=== PATIENT | female | born 1950 | race Caucasian/White ===

== ENCOUNTER → 2016-07-01 | Outpatient (CLI) | payer MEDICARE, BC ==
--- NOTE | 2016-07-01 10:17 | US ---
EXAMINATION TYPE: US abdomen complete DATE OF EXAM: 07/01/2016 9:59 AM COMPARISON: NONE CLINICAL History: epigastric pain. large body habitus overlying bowel gas EXAM MEASUREMENTS: Liver Length: 18.5 cm Gallbladder Wall: 0.2 cm CBD: 0.1 cm Spleen: 13.2 cm Right Kidney: 10.2 x 4.1 x 3.9 cm Left Kidney: 9.6 x 4.2 x 3.7 cm ANATOMY: TECHNOLOGIST IMPRESSION: large body habitus overlying bowel gas Pancreas: large body habitus overlying bowel gas Liver: upper limits of normal Gallbladder: wnl Evidence for sonographic Garzon's sign: no CBD: wnl Spleen: wnl Right Kidney: wnl Left Kidney: small cortical cyst 0.5 x 0.5 x 0.9 cm Upper IVC: portions seen wnl Abd Aorta: large body habitus overlying bowel gas portions seen wnl The liver is homogenous. The intrahepatic portion of the IVC and proximal abdominal aorta are within normal limits. There is no evidence of cholelithiasis. Common bile duct is unremarkable. The visu alized portions of the pancreas are homogenous. The spleen is unremarkable. Kidneys are symmetric a nd free of hydronephrosis. No renal lesions are seen. IMPRESSION: Limited study. Small left renal cortical cyst. Normal Values: Liver Length: < 16cm wnl, 17-18cm upper limits, >18cm enlarged Spleen Length = < 13cm Renal Length = 9 - 12cm GB Wall: < 0.3cm CBD: < 0.6cm or < 1.0cm post cholecystectomy
== END | disposition home or self-care (01) ==
LOC: RADUSWWP 09:29
PROVIDERS: ATTEND Internal Medicine Gastroenterology
DX: N28.1 Cyst of kidney, acquired (principal); R10.13 Epigastric pain
CPT/HCPCS: 76700

== ENCOUNTER 2016-07-09 07:05 | Day surgery (SDC) | payer MEDICARE, BC ==
[2016-07-07 12:42] VITALS: BMI 36.6
[~2016-07-09 07:05] MED LIST: LACTATED RINGERS 1,000 ML IV SCH
[2016-07-09 07:27] VITALS: TEMP 97.1
[2016-07-09 07:31] LABS: Glucose,Whole Blood 140 mg/dL (75-99)
[2016-07-09] MEDS ORDERED: LIDOCAINE 1% INJ 10MG/ML (20 ML MDV) ONE (07:38)
[2016-07-09] MEDS ORDERED: PROPOFOL 10 MG/ML 20 ML VIAL IV ONE (07:38)
--- NOTE | 2016-07-09 08:16 | P.PCN ---
Date of Procedure: 07/09/16 Procedure(s) Performed: Brief history: Patient is a pleasant 66-year-old white female, scheduled for an elective upper endoscopy as well as colonoscopy as a part of evaluation of abdominal pain, epigastric pain and chronic diarrhea for the last several months duration. Lately her symptoms have been progressively getting worse. She is hence scheduled for an upper endoscopy as well as colonoscopy to evaluate further. Procedure performed: Esophagogastroduodenoscopy with biopsy Colonoscopy with biopsy Preoperative diagnosis: Abdominal pain, chronic diarrhea Anesthesia: MAC Procedure: After informed consent was obtained from the patient was brought into the endoscopy unit and IV conscious sedation was administered by anesthesia under continuous monitoring. Initially upper endoscopy was done. The Olympus GF 160 video endoscope was inserted inserted into the mouth and esophagus intubated without any difficulty and was gradually advanced into the stomach and duodenum and carefully examined. The bulb and second part of the duodenum appeared normal. Biopsies were done from this area to rule out celiac disease. The scope was then withdrawn into the stomach adequately insufflated with air and upon careful examination the antrum had mild gastritis and biopsies were done from this area. The body, cardia and fundus appeared normal. The scope was then withdrawn into the esophagus. The GE junction was located at 40 cm to the incisors. It appeared regular with no erythema erosions or ulcerations. Rest of the esophagus appeared normal. Patient tolerated the procedure well. At this time the patient continued to remain sedation. Initial digital rectal examination was normal. Olympus CF 160 video colonoscope was then inserted into the rectum and gradually advanced to the cecum without any difficulty. Careful examination was performed as the scope was gradually being withdrawn. The prep was excellent. The cecum, ascending colon appeared normal. In the hepatic flexure there was a 5 mm polyp that was removed by biopsy. Rest of the , transverse colon, descending colon, sigmoid colon and rectum appeared normal. random biopsies were done from ascending and descending colon to rule out microscopic/collagenous colitis. Retroflexion was performed in the rectum and no lesions were noted. Patient tolerated the procedure well. Impression: 1. Upper endoscopy revealed mild antral gastritis but no evidence of esophagitis or peptic ulcer disease. 2. Colonoscopy revealed 5 mm hepatic flexure polyp that was removed by biopsy, rest of the colon appeared normal. Recommendations: Findings of this examination were discussed with the patient as well as well as her family. She was advised to follow with the biopsy results. If the biopsy shows a tubular adenoma she can have a repeat colonoscopy in 5 years. She'll be seen in office in 2 weeks.
[2016-07-09 08:18] VITALS: PULSE 75; RESP 18
[2016-07-09 08:29] VITALS: BP 135/76
== END 2016-07-09 09:18 | disposition home or self-care (01) ==
LOC: ORWHC2ENDO 07:05
PROVIDERS: ATTEND Internal Medicine Gastroenterology
DX: K29.50 Unspecified chronic gastritis without bleeding (principal); D12.3 Benign neoplasm of transverse colon; K21.9 Gastro-esophageal reflux disease without esophagitis; F32.9 Major depressive disorder, single episode, unspecified; Z79.899 Other long term (current) drug therapy; Z88.0 Allergy status to penicillin; Z88.5 Allergy status to narcotic agent; Z91.09 Other allergy status, other than to drugs and biological substances
CPT/HCPCS: 88305; 88342; 45380; 43239; J2001; J2704; 99153

== ENCOUNTER → 2018-11-10 | Outpatient (CLI) | payer MEDICARE, BC ==
--- NOTE | 2018-11-10 13:22 | US ---
EXAMINATION TYPE: US duplex aorta DATE OF EXAM: 11/10/2018 COMPARISON: Ultrasound abdomen 07/01/2016 CLINICAL HISTORY: Z82.49 Family history of ischemic heart disease an. Family hx of AAA- Mother. HTN controlled with meds. Previous smoker. EXAM MEASUREMENTS: Abdominal Aorta: Proximal: 1.7 x 2.3 cm Mid: 1.3 x 1.4 cm Distal: 1.3 x 1.4 cm Bifurcation: Right- 1.2 x 0.7 cm Left- 1.1 x 0.7 cm Grayscale, color Doppler imaging performed IMPRESSION: No evident abdominal aortic aneurysm.
== END | disposition home or self-care (01) ==
LOC: RADUSWWP 09:51
PROVIDERS: ATTEND Family Medicine
DX: Z13.6 Encounter for screening for cardiovascular disorders (principal); Z82.49 Family history of ischemic heart disease and other diseases of the circulatory system
CPT/HCPCS: 93979

== ENCOUNTER → 2019-01-03 | Outpatient (CLI) | payer MEDICARE, BC ==
--- NOTE | 2019-01-03 13:39 | XR ---
EXAMINATION TYPE: XR elbow complete bilateral DATE OF EXAM: 01/03/2019 COMPARISON: NONE HISTORY: Pain FINDINGS: Three views of the elbow demonstrate no pathologic joint effusion. The osseous structures are intact . There is no acute fracture or dislocation. Spurring along the lateral epicondyles noted. No patho logic joint effusion. IMPRESSION: 1. No acute fracture or dislocation. If symptoms persist follow-up study in 7 to 10 days could be ob tained. 2. Small spur extending off the lateral epicondyle. If symptoms persist correlate with MRI.
--- NOTE | 2019-01-03 13:40 | XR ---
EXAMINATION TYPE: XR cervical spine comp DATE OF EXAM: 01/03/2019 COMPARISON: NONE HISTORY: Pain TECHNIQUE: Four views are submitted. FINDINGS: The odontoid is intact. There are no compression deformities. The prevertebral soft tissue structur es are within normal limits. There is multilevel severe degenerative disc disease with posterior spo ndylosis and anterior hypertrophic spurring. Multilevel facet arthropathy. Calcifications in the soft tissue the neck likely related to carotid artery atherosclerotic changes. Suspect multilevel bilater al foraminal encroachment. IMPRESSION: 1. Severe multilevel degenerative disc disease with facet arthropathy. Posterior spondylosis and mult ilevel foraminal encroachment suspected..
== END | disposition home or self-care (01) ==
LOC: RADXRMAIN 12:48
PROVIDERS: ATTEND Family Medicine
DX: M50.10 Cervical disc disorder with radiculopathy, unspecified cervical region (principal); M46.92 Unspecified inflammatory spondylopathy, cervical region; M77.12 Lateral epicondylitis, left elbow; M77.11 Lateral epicondylitis, right elbow
CPT/HCPCS: 72050

== ENCOUNTER → 2019-04-11 | Outpatient (CLI) | payer MEDICARE, BC ==
--- NOTE | 2019-04-11 16:38 | BD ---
EXAMINATION TYPE: Axial Bone Density DATE OF EXAM: 04/11/2019 COMPARISON: NONE CLINICAL HISTORY: Height: 5 FT 4 IN Weight: 199 FRAX RISK QUESTIONS: History of Fracture in Adulthood: YES Secondary Osteoporosis: 5. Chronic liver disease: FATTY Rheumatoid Arthritis: YES RISK FACTORS HISTORY OF: Active: NO Postmenopausal woman: AGE 48 Poor Health: FAIR MEDICATIONS: Thyroid Medications: YES Which medication: SYNTHROID How Long: SEVERAL MONTHS Additional Medications: SYNTHROID, METFORMIN, MANY CREAMS FOR PSORIASIS, BLOOD PRESSURE MEDS, CHOLEST SHEFALI MEDS, PRILOSEC, LOPRESSOR, LEXAPRO, ELAVIL, Additional History: EXAM MEASUREMENTS: Bone mineral densitometry was performed using the [employer] System. Bone mineral density as measured about the Lumbar spine is: ----- L1-L4(G/cm2): 1.090 T Score Values are as follows: ----- L2: -1.4 ----- L3: -0.6 ----- L4: 0.3 ----- L1-L4: -0.8 BASELINE Bone mineral density about the R hip (g/cm2): 0.982 Bone mineral density about the L hip (g/cm2): 1.007 T Score values are as follows: -----R Neck: -0.4 -----L Neck: -0.2 -----R Total: 0.2 -----L Total: 1.0 BASELINE IMPRESSION: Normal (Values between +1 and -1 indicate normal bone mass). Consider repeating this study in 5 year s or sooner if there is some new clinical indication. NOTE: T-SCORE=SD OF THE YOUNG ADULT MEAN.
--- NOTE | 2019-04-13 10:55 | MM ---
Reason for exam: screening (asymptomatic). Last mammogram was performed 3 years and 3 months ago. History: Patient is postmenopausal and is nulliparous. Took hormonal contraceptives for 5 years. Took estrogen for 6 months. Physical Findings: A clinical breast exam by your physician is recommended on an annual basis and results should be correlated with mammographic findings. MG 3D Screening Mammo W/Cad Bilateral CC and MLO view(s) were taken. XCCL view(s) were taken of the left breast. Prior study comparison: January 07, 2016, bilateral MG screening mammo w CAD. September 22, 2012, mammogram, performed at [facility]. No significant changes when compared with prior studies. ASSESSMENT: Benign, BI-RAD 2 RECOMMENDATION: Routine screening mammogram of both breasts in 1 year.
== END | disposition home or self-care (01) ==
LOC: RADMAMWWP 13:20
PROVIDERS: ATTEND Family Medicine
DX: Z12.31 Encounter for screening mammogram for malignant neoplasm of breast (principal); M89.9 Disorder of bone, unspecified
CPT/HCPCS: 77063; 77067; 77080

== ENCOUNTER → 2020-04-18 | Outpatient (CLI) | payer MEDICARE, BC ==
--- NOTE | 2020-04-18 15:41 | CT ---
EXAMINATION TYPE: CT chest w con DATE OF EXAM: 04/18/2020 COMPARISON: HISTORY: Cough, difficulty breathing CT DLP: 454.0 mGycm Automated exposure control for dose reduction was used. CONTRAST: CT scan of the chest is performed with IV Contrast, patient injected with 80 mL of Isovue 300. FINDINGS: There are coronary artery calcifications present. LUNGS: The lungs are grossly clear, there is no concerning parenchymal mass or nodule identified. T here is no pleural effusion or pneumothorax seen. The tracheobronchial tree is patent. MEDIASTINUM: There are no greater than 1 cm hilar or mediastinal lymph nodes. Prominent epicardial f at pads. Probable scarring present in the right middle lobe No pericardial effusion is seen. AORTA: Atheromatous changes are present within the aorta. OTHER: No additional significant abnormality is seen. IMPRESSION: Coronary artery disease. No abnormality evident to account for patient's symptoms.
== END | disposition home or self-care (01) ==
LOC: RADCTMAIN 12:44
PROVIDERS: ATTEND Family Medicine
DX: R05 Cough (principal); R06.00 Dyspnea, unspecified
CPT/HCPCS: 82565; 84520; 71260; 36415; Q9967

== ENCOUNTER → 2020-05-19 | Day surgery (SDC) | payer MEDICARE, BC ==
[2020-05-14 16:03] VITALS: BMI 33.4
[~2020-05-19] MED LIST changes: +ACETAMINOPHEN TAB 325 MG TAB ONE; +ALPRAZolam 0.25 MG TAB PO PRN; +ALPRAZolam 0.5 MG TAB PO PRN; +AMITRIPTYLINE HCL 50 MG TAB PO SCH; +ASPIRIN 325 MG TAB PO STA; +ASPIRIN 81 MG ONE; +ASPIRIN 81 MG PO SCH; +ATORVASTATIN 80 MG TAB PO STA; +HEPARIN SODIUM 1,000 UN/ML (10ML VL) ONE; +IOPAMIDOL-370 125ML BTL INJ ONE; +ISOSORBIDE MONONITRATE ER 30 MG TAB.ER.24H PO SCH; -LACTATED RINGERS 1,000 ML IV SCH; +LEVOTHYROXINE 75 MCG TAB PO SCH; +LIDOCAINE 1% INJ 10MG/ML (20 ML MDV) ONE; +LIDOCAINE 1% INJ 10MG/ML (20 ML MDV) SQ ONE; +METOPROLOL TARTRATE 50 MG TAB PO SCH; +MIDAZOLAM 2 MG/2 ML VIAL IV ONE; +MULTIVITAMINS, THERA 1 EACH TAB PO SCH; +NITROGLYCERIN 1000MCG/10ML SYRINGE INTRACORON ONE; +NITROGLYCERIN SL TABS 0.4 MG TAB SUBLINGUAL PRN; +PANTOPRAZOLE 40 MG TABLET PO SCH; +RX INFO: IV CONTRAST WAS GIVEN 1 EACH MISC MISCELLANE PRN; +SODIUM CHLORIDE 0.9% 1,000 ML IV ONE; +SODIUM CHLORIDE 0.9% 1,000 ML IV SCH; +SODIUM CHLORIDE 0.9% 1,000 ML in EMPTY BAG 1 BAG IV ONE; +VERAPAMIL 2.5 MG/ML 2 ML AMP ONE; +VERAPAMIL SYRINGE (5 MG/10 ML) INTRAARTER ONE; +fentaNYL (PF) 50 MCG/ML 2 ML AMP IV ONE; +fentaNYL (PF) 50 MCG/ML 2 ML AMP ONE
[2020-05-19 10:20] LABS: Glucose,Whole Blood 153 mg/dL (75-99)
[2020-05-19 10:21] VITALS: RESP 16; TEMP 97.9
--- NOTE | 2020-05-19 13:10 | CC ---
CARDIAC CATHETERIZATION REPORT Mrs. Martell is a 69-year-old female with known history of hypertension, hyperlipidemia, diabetes mellitus, who has been complaining of progressive episode of chest discomfort at times with mental stress as well as dyspnea on exertion and she had a CAT scan that showed calcification for coronary arteries. In view of her presentation, her risk factors, recommendation made regarding cardiac catheterization. The procedures, risks, and complication were discussed with the patient who is in full understanding and agreement. PROCEDURE: Patient was brought to dental lab technician in a fasting semi-sedated state after receiving fentanyl and Benadryl and achieving moderate conscious sedated state using Xylocaine anesthesia and Seldinger technique, a 6-Singaporean sheath was introduced in the right radial artery. Selective right and left coronary angiography performed using 5-Singaporean 3.5 bend right and left Clarita catheter, multiple views of the coronary artery including hemiaxial views were obtained. The right Clarita catheter was used to cross the aortic valve and left ventricular end-diastolic pressure was calculated. Following that, a 6-Singaporean FR4 guiding catheter introduced into the system. After cannulating the ostium of the right coronary artery. A TabSquare Doppler flow wire was introduced and IFR was calculated. Following that, catheter and sheath were removed. Hemostasis was obtained with deployment of a TR band. There was no immediate complication. Patient is returned to her room in stable condition. Of note, the patient received 1000 units of intravenous heparin as well as intra-arterial verapamil. FINDINGS: FLUOROSCOPY: There was calcification involving the left main as well as the right artery next. LEFT MAIN: This is a short-size vessel, bifurcating into left circumflex, left main coronary artery has no evidence of high-grade stenosis. LEFT ANTERIOR DESCENDING ARTERY: This is a large-sized vessel reaching toward the apex with a wraparound apex segment, giving rise to 2 diagonal branches. Left anterior descending artery proximally has intimal disease of 20%-30%. distally prior to the apex there is an area of about 70%. The rest of the vessel has no high-grade stenosis. LEFT CIRCUMFLEX: This is a nondominant vessel giving rise to a large obtuse marginal branch. The left circumflex has mild intimal disease without any evidence of high- grade stenosis. RIGHT CORONARY ARTERY: This is a dominant vessel, large in caliber bifurcating distally into PDA and posterolateral segment branches. The right coronary artery in mid segment has an eccentric 50%-60% plaque. There is another plaque in the distal segment of 40%. The rest of the vessel has no high-grade stenosis. LEFT VENTRICULOGRAM: Left ventriculogram was not performed. HEMODYNAMICS: There was no gradient across the aortic valve. The left ventricular end- diastolic pressure was 12-14 mmHg. IFR: IFR was measured with the wire in the distal right coronary artery and was one and based on those findings, it was found that the lesion was non hemodynamically significant. RESULTS: 1. Borderline lesion in the mid right coronary artery. 2. Significant disease in the mid to distal right coronary artery and beyond that the size of the vessel is small. 3. Mild disease in the left circumflex. 4. Non hemodynamically significant lesion in the mid right coronary artery by IFR. RECOMMENDATION: In view of finding anatomy, I recommend continue medical therapy with aggressive coronary risk modifications being initiated. Those findings and recommendation were discussed with the patient and her family and they are in full understanding and agreement. Duration of the sedation is 20 minutes. MMODL / IJN: [id number] /
--- NOTE | 2020-05-19 13:15 | LTR ---
DATE OF SERVICE: 05/19/2020 RE: Jayshree Amina Dear Dr. Delgadillo; I had the pleasure to perform cardiac catheterization on Mrs. Martell at [facility] on May 19, 2020 and a full copy of the procedure note will be forwarded to you. In brief, she was found to have a borderline significant lesion in mid right coronary artery and underwent subsequent IFR measurement that showed that the lesion was not hemodynamically significant and based on those findings, I have recommended to continue medical therapy with aggressive risk modifications that have been initiated and depending on her progress, further recommendation will be made. Thank you again for allowing me to participate in this patient's personal care. Please feel free to call for any questions. Sincerely yours, MD SLAVA Ceja / JUAN JN: [id number] /
[2020-05-19 17:19] VITALS: BP 135/76; PULSE 76
== END ==
LOC: CATHCVL 09:34
PROVIDERS: ATTEND Internal Medicine Interventional Cardiology
DX: I25.110 Atherosclerotic heart disease of native coronary artery with unstable angina pectoris (principal); I10 Essential (primary) hypertension; E11.9 Type 2 diabetes mellitus without complications; E78.2 Mixed hyperlipidemia; E66.9 Obesity, unspecified; Z87.891 Personal history of nicotine dependence; Z79.890 Hormone replacement therapy; Z79.899 Other long term (current) drug therapy; Z79.84 Long term (current) use of oral hypoglycemic drugs; Z88.0 Allergy status to penicillin; Z88.2 Allergy status to sulfonamides; Z88.5 Allergy status to narcotic agent; Z90.49 Acquired absence of other specified parts of digestive tract; Z96.659 Presence of unspecified artificial knee joint; Z68.33 Body mass index [BMI] 33.0-33.9, adult
CPT/HCPCS: 93458; 85347; C1887; C1769; C1894; J2250; J2001; J3010; J1644; Q9967

== ENCOUNTER → 2021-03-04 | Outpatient (CLI) | payer MEDICARE, BC ==
--- NOTE | 2021-03-04 17:32 | CONS ---
CONSULTATION DATE OF SERVICE: 03/04/2021 This 70-year-old lady has been evaluated in [facility] for possible obstructive sleep apnea-hypopnea syndrome. HISTORY OF PRESENT ILLNESS/SLEEP-WAKE EVALUATION: Patient's usual sleep schedule is from 1 a.m. until 9 or 10 a.m. She does have problems with falling asleep, although no TV in bedroom. Usually she sleeps on the side position. According to her sister, she has very loud snoring and witnessed episodes of stopped breathing during sleep. The patient wakes up from sleep with choking, grinding teeth, dry mouth, panic attack, heartburn several times during the night, usually without nocturia. Recently the patient started to have significant movements during sleep and had episodes of falling out of bed. No history of jah-vw-[id number] movements, according to the patient. No history of hypnagogic hallucinations, sleep paralysis or cataplexy. She may take up to one nap, usually around 3 p.m. [place] Sleepiness Scale is increased to 10. PAST MEDICAL HISTORY: Positive for hypertension, hyperlipidemia, arthritis, COPD, acid reflux, diabetes mellitus, hypothyroidism. PAST SURGICAL HISTORY: Status post right knee replacement, appendectomy. MEDICATIONS: 1. Metformin 1000 mg twice a day. 2. Elavil 150 mg once a day. 3. Metoprolol 50 mg twice a day. 4. Prilosec 40 mg once a day. 5. Lexapro 10 mg once a day. 6. Fluticasone spray as needed. 7. Aspirin 81 mg once a day. 8. Vitamins. 9. Xanax 0.25 mg as needed. ALLERGIES: PENICILLIN and ERYTHROMYCIN, SEASONAL ALLERGIES , VICODIN. SOCIAL HISTORY: Positive for smoking for about 30 years up to 2 packs a day; quit in 2005. Alcohol consumption: None at the present time. FAMILY HISTORY: Positive for snoring, hypertension. REVIEW OF SYSTEMS: No fevers. No double vision. No recent chest pain. No shortness of breath. No abdominal pain. No bleeding episodes. No blood in the urine. No seizure episodes. Awakenings from sleep, loud snoring, sleepiness during the day. PHYSICAL EXAMINATION: GENERAL: Pleasant lady without distress. VITAL SIGNS: BP 143/73, HR 70, RR 15, height 5 feet 4-1/2 inches, weight 197 pounds. Body mass index 33.2, temperature 97.8, oxygen saturation at room air 98%. HEENT: PERRLA, EOMI, evaluation of oropharynx showed tongue protrudes midline. Low position of soft palate; Mallampati III. NECK: Supple, no JVD. Thyroid is not palpable. Neck measures 16 inches in circumference. LUNGS: Clear to percussion and to auscultation. Good air exchange. No wheezing or rhonchi. HEART: S1, S2 regular. No murmurs, gallops, or rubs. ABDOMEN: Soft and nontender. Bowel sounds are present. No organomegaly appreciated. EXTREMITIES: No clubbing or cyanosis. PRODUCT/DEVICE TECHNOLOGIST: Awake, alert, and oriented X3. Cranial nerves 2 to 7 intact. There is no fasciculation or atrophy. noted. No focal deficits observed. IMPRESSION: 1. Loud snoring, witnessed episodes of stopped breathing during sleep, low position of soft palate, wide neck at 16 inches in circumference, sleepiness. [place] Sleepiness Scale is 10. Obstructive sleep apnea-hypopnea syndrome. 2. Mild obesity; body mass index 33.2. 3. Movements during the sleep with a history of falling out of bed. 4. Hypertension. 5. Hyperlipidemia. 6. Arthritis. 7. Chronic obstructive pulmonary disease. 8. Acid reflux. 9. Diabetes mellitus. 10.Hypothyroidism. 11.Status post right knee replacement. 12.Status post appendectomy. PLAN: 1. Polysomnography for evaluation of patient's breathing during sleep. 2. CPAP/BiPAP titration if sleep study confirms obstructive sleep apnea-hypopnea syndrome. 3. Preferable position during sleep on the side. 4. No driving if patient feels any sleepiness. 5. I will see patient for follow up visit to explain results of testing and following plan. Thank you very much for referring this patient for consultation. Sincerely, Connor Moreno MD, PhD, FAASM Diplomat of [employer] Sleep Medicine Board of [place] [employer] [place] [facility] [place] MMODL / JUAN JN: [id number] /
== END ==
LOC: SLEEP 14:29
PROVIDERS: ATTEND Internal Medicine
DX: G47.33 Obstructive sleep apnea (adult) (pediatric) (principal); E66.9 Obesity, unspecified; E11.9 Type 2 diabetes mellitus without complications; E78.5 Hyperlipidemia, unspecified; I10 Essential (primary) hypertension; J44.9 Chronic obstructive pulmonary disease, unspecified; K21.9 Gastro-esophageal reflux disease without esophagitis; M19.90 Unspecified osteoarthritis, unspecified site; E03.9 Hypothyroidism, unspecified; Z68.33 Body mass index [BMI] 33.0-33.9, adult; Z79.84 Long term (current) use of oral hypoglycemic drugs; Z79.899 Other long term (current) drug therapy; Z96.651 Presence of right artificial knee joint; Z90.49 Acquired absence of other specified parts of digestive tract; Z88.0 Allergy status to penicillin; Z88.1 Allergy status to other antibiotic agents; Z88.5 Allergy status to narcotic agent; Z87.891 Personal history of nicotine dependence
CPT/HCPCS: 99211

== ENCOUNTER 2021-04-10 09:34 | Emergency (ER) | payer MEDICARE, BC ==
[2021-04-10 09:49] VITALS: BP 130/84; PULSE 91; RESP 18; TEMP 98.2
[2021-04-10] MEDS ORDERED: ACETAMINOPHEN TAB 500 MG TAB PO STA (10:14)
--- NOTE | 2021-04-10 10:33 | ED ---
Fall HPI - General Chief Complaint: Fall Stated Complaint: Fell on head and body Time Seen by Provider: 04/10/21 10:10 Source: patient, RN notes reviewed Mode of arrival: wheelchair Limitations: no limitations - History of Present Illness Initial Comments: Patient is a 70-year-old female presenting to the emergency Department with complaints of some left-sided back pain after she fell last night. Patient states she was walking back to her bed when she tripped and fell sideways onto her left side. Patient states she was able to get up and went back to bed. When she woke up this morning she had some soreness and swelling noted of her left back area. She called her doctor regarding this and he recommended coming in for evaluation. She denies any hematuria, she states she did hit her head on the ground but landed mostly on her body first. She is not on blood thinners. She did land on carpet. She did not lose consciousness, she denies having headache, no blurry vision, no dizziness. She denies any neck pain, no chest pain or shortness of breath. She denies any abdominal pain, no nausea or vomiting. She denies any pain in her extremities, no pelvic pain, no hip pain. Patient states her only complaint today is the left back pain. She denies any previous surgeries on her back. She has no further complaints at this time. - Related Data Home Medications Medication Instructions Recorded Confirmed Albuterol Inhaler (Mhu) [Ventolin 1 - 2 puff INHALATION Q6HR PRN 07/07/16 05/19/20 Hfa Inhaler (Mhu)] Cholecalciferol [Vitamin D3 (25 5,000 unit PO DAILY 07/07/16 05/19/20 Mcg = 1000 Iu)] Escitalopram [Lexapro] 10 mg PO QAM 07/07/16 05/19/20 Loperamide HCl [Imodium A-D] 2 mg PO DAILY PRN 07/07/16 05/19/20 Metoprolol Tartrate [Lopressor] 50 mg PO BID 07/07/16 05/19/20 Multivitamins, Thera [Multivitamin 1 tab PO DAILY 07/07/16 05/19/20 (formulary)] metFORMIN HCL [Glucophage] 1,000 mg PO BID 07/07/16 05/19/20 ALPRAZolam [Xanax] 0.25 mg PO DIRECTED PRN 05/14/20 05/19/20 Amitriptyline HCl 150 mg PO HS 05/14/20 05/19/20 Cetametha Liquid 1 applicate TOPICAL DIRECTED PRN 05/14/20 05/19/20 Clobetasol Gel 1 applicate TOPICAL DIRECTED PRN 05/14/20 05/19/20 Fluticasone Nasal [place] [Flonase 1 spray EA NOSTRIL DAILY 05/14/20 05/19/20 Nasal [place]] Hemiplex 1 tab PO DAILY 05/14/20 05/19/20 Isosorbide Mononitrate [Isosorbide 30 mg PO DAILY 05/14/20 05/19/20 Mononitrate ER] Levothyroxine Sodium [Synthroid] 75 mcg PO DAILY 05/14/20 05/19/20 Omeprazole [PriLOSEC] 40 mg PO HS 05/14/20 05/19/20 Previous Rx's Medication Instructions Recorded Aspirin 81 mg PO DAILY chew 05/19/20 Allergies Allergy/AdvReac Type Severity Reaction Status Date / Time erythromycin base Allergy Severe burning Verified 04/10/21 09:49 pain to esophagus/stomach Penicillins Allergy Diarrhea Verified 04/10/21 09:49 Sulfa (Sulfonamide Allergy Unknown Verified 04/10/21 09:49 Antibiotics) hydrocodone [From Vicodin] AdvReac Severe Vomiting Verified 04/10/21 09:49 Review of Systems ROS Statement: Those systems with pertinent positive or pertinent negative responses have been documented in the HPI. ROS Other: All systems not noted in ROS Statement are negative. Past Medical History Past Medical History: Chest Pain / Angina, COPD, Diabetes Mellitus, Fibromy algia, GERD/Reflux, Hypertension, Liver Disease, Osteoarthritis (OA), Rheumatoid Arthritis (RA), Skin Disorder, Thyroid Disorder Additional Past Medical History / Comment(s): migraines, SOB with chest pain, heart murmer, hx ulcer, hiatal hernia, diarrhea, IBS, fatty liver, hx gout, psoriasis, History of Any Multi-Drug Resistant Organisms: None Reported Past Surgical History: Appendectomy, Tonsillectomy Additional Past Surgical History / Comment(s): blocked tear duct left eye, dinh cataracts Past Anesthesia/Blood Transfusion Reactions: Motion Sickness Past Psychological History: No Psychological Hx Reported Smoking Status: Former smoker Past Alcohol Use History: None Reported Past Drug Use History: None Reported - Past Family History Mother Family Medical History: Cancer Additional Family Medical History / Comment(s): lung General Exam - General Exam Comments Initial Comments: GENERAL: Patient is well-developed and well-nourished. Patient is nontoxic and in no acute distress. HEAD: Atraumatic, normocephalic. No hematomas, no abrasions. EYES: Pupils equal round and reactive to light, extraocular movements intact, sclera anicteric, conjunctiva are normal. Eyelids were unremarkable. ENT: Moist mucous membranes. NECK: Normal range of motion, supple without lymphadenopathy or JVD. No midline tenderness. LUNGS: Unlabored respirations. Breath sounds clear to auscultation bilaterally and equal. No wheezes rales or rhonchi. HEART: Regular rate and rhythm without murmurs, rubs or gallops. ABDOMEN: Soft, nontender, normoactive bowel sounds. No guarding, no rebound. No masses appreciated. : Deferred MUSCULOSKELETAL: Normal extremities with adequate strength and normal range of motion, no pitting or edema. No clubbing or cyanosis. Pain with palpation along the left thoracic back, she does have some mild bruising present. NEUROLOGICAL: Patient is alert and oriented x 3. Motor and sensory are also intact. Cranial nerves II through XII grossly intact. Symmetrical smile. Normal speech, normal gait. PSYCH: Normal mood, normal affect. SKIN: Warm, Dry, normal turgor, no rashes or lesions noted. Limitations: no limitations Course Vital Signs 04/10/21 09:44 Temperature 98.2 F Pulse Rate 91 Respiratory 18 Rate Blood Pressure 130/84 O2 Sat by Pulse 98 Oximetry Medical Decision Making - Medical Decision Making Patient is a 70-year-old female here after she fell last night, she is complaining of left sided mid back pain, bruising this area. She is not on blood thinners. Her vitals are stable. X-rays of thoracic and lumbar spine reveal no acute fractures dislocations. Urine shows no evidence of hematuria. Patient was given some Tylenol, does report improvement in her symptoms. I discussed that there is a mostly contusions. I recommended heat and/or ice to the area, rest. She'll follow-up with her primary care. She is agreeable to this. - Lab Data Lab Results 10/15/21 Range/Units 10:26 Urine Color Yellow Urine Appearance Clear (Clear) Urine pH 6.0 (5.0-8.0) Ur Specific [place] 1.016 (1.001-1.035) Urine Protein Trace H (Negative) Urine Glucose (UA) Negative (Negative) Urine Ketones Negative (Negative) Urine Blood Negative (Negative) Urine Nitrite Negative (Negative) Urine Bilirubin Negative (Negative) Urine Urobilinogen <2.0 (<2.0) mg/dL Ur Leukocyte Esterase Moderate H (Negative) Urine RBC 1 (0-5) /hpf Urine WBC 11 H (0-5) /hpf Ur Squamous Epith Cells 2 (0-4) /hpf Urine Bacteria Rare H (None) /hpf Hyaline Casts 5 H (0-2) /lpf Urine Mucus Rare H (None) /hpf Disposition Clinical Impression: Fall, Contusion of thoracic spine Disposition: HOME SELF-CARE Condition: Stable Instructions (If sedation given, give patient instructions): Contusion in Adults (ED) Additional Instructions: Please return to the Emergency Department if symptoms worsen or any other concerns. Recommended Tylenol for any discomfort. May apply ice or heat to the area. Follow up with the primary care as needed. Is patient prescribed a controlled substance at d/c from ED?: No Referrals: Marquita Delgadillo MD [Primary Care Provider] - 1-2 days Time of Disposition: 11:26
[2021-04-10 11:02] LABS: Appearance,Urine Clear (Clear); Bacteria,Urine Rare /hpf; Bilirubin,Urine Negative (Negative); Blood,Urine Negative (Negative); Color,Urine Yellow; Glucose,Urine (UA) Negative (Negative); Hyaline Casts,Urine 5 /lpf (0-2); Ketones,Urine Negative (Negative); Leukocyte Esterase,Urine Moderate (Negative); Mucus,Urine Rare /hpf; Nitrite,Urine Negative (Negative); Protein,Urine Trace (Negative); RBC,Urine 1 /hpf (0-5); Specific Gravity,Urine 1.016 (1.001-1.035); Squamous Epithelial Cell,Urine 2 /hpf (0-4); Urobilinogen,Urine <2.0 mg/dL (<2.0); WBC,Urine 11 /hpf (0-5)
--- NOTE | 2021-04-10 11:12 | XR ---
EXAMINATION TYPE: XR thoracic spine 2V DATE OF EXAM: 04/10/2021 COMPARISON: NONE HISTORY: Pain TECHNIQUE: 3 views submitted FINDINGS: Alignment is anatomic. There is no compression deformities. Hypertrophic and degenerative changes of the spine. Degenerative change lower cervical spine. IMPRESSION: 1. Multilevel degenerative disc disease.
--- NOTE | 2021-04-10 11:12 | XR ---
EXAM TYPE: LUMBAR SPINE X RAY SERIES COMPARISON: NONE HISTORY: pain TECHNIQUE: 4 views are submitted. FINDINGS: Alignment is anatomic. The pedicles are intact. The transverse processes are intact. There is no s pondylolysis or spondylolisthesis. Vascular calcifications noted. Degenerative change L4-5 and L5-S1 with facet arthropathy. IMPRESSION: 1. Degenerative change L4-5 and L5-S1 with facet arthropathy.
== END 2021-04-10 12:06 | disposition home or self-care (01) ==
LOC: EC 09:34
DX: S20.222A Contusion of left back wall of thorax, initial encounter (principal); E11.9 Type 2 diabetes mellitus without complications; I10 Essential (primary) hypertension; J44.9 Chronic obstructive pulmonary disease, unspecified; M79.7 Fibromyalgia; M06.9 Rheumatoid arthritis, unspecified; Z79.890 Hormone replacement therapy; Z79.82 Long term (current) use of aspirin; Z79.84 Long term (current) use of oral hypoglycemic drugs; Z79.51 Long term (current) use of inhaled steroids; Z79.899 Other long term (current) drug therapy; Z88.0 Allergy status to penicillin; Z88.1 Allergy status to other antibiotic agents; Z88.2 Allergy status to sulfonamides; W01.0XXA Fall on same level from slipping, tripping and stumbling without subsequent striking against object, initial encounter
CPT/HCPCS: 72070; 72100; 81001; 99284

== ENCOUNTER → 2021-12-15 | Outpatient (CLI) | payer MEDICARE, BC ==
--- NOTE | 2021-12-15 15:51 | BD ---
EXAMINATION TYPE: Axial Bone Density DATE OF EXAM: 12/15/2021 COMPARISON: NONE CLINICAL HISTORY: 71 year old Female. ICD-10 CODE: Z78.0 ASYMPTOMATIC MENOPAUSAL STATE Height: 65 Weight: 205.4 FRAX RISK QUESTIONS: Alcohol (3 or more units per day): no Family History (Parent hip fracture): no Glucocorticoids (More than 3mos): no (Ex: prednisone, prednisolone, methylprednisolone, dexamethasone, and hydrocortisone). History of Fracture in Adulthood: yes Secondary Osteoporosis: 1. Type 1 Diabetes: no 2. Hyperthyroidism: no 3. Menopause before 45: no 4. Malnutrition: no 5. Chronic liver disease: no Rheumatoid Arthritis: no Current Tobacco Use: no RISK FACTORS HISTORY OF: Surgery to Spine/Hip(right/left)/Wrist (right/left): no Family History of Osteoporosis: no Active: no Diet low in dairy products/other sources of calcium: yes Postmenopausal woman: yes Lost more than 2 inches in height since high school: no MEDICATIONS: Thyroid Medications: How Long: thyroid- 6 months Additional History: EXAM MEASUREMENTS: Bone mineral densitometry was performed using the [employer]. Bone mineral density as measured about the Lumbar spine is: ----- L1-L4(G/cm2): 1.071 T Score Values are as follows: ----- L1: -2.0 ----- L2: -2.1 ----- L3: -0.5 ----- L4: 0.3 ----- L1-L4: -0.9 Bone mineral density has: decreased -1.2 % since study of: 04.11.2019 Bone mineral density about the R hip (g/cm2): 0.947 Bone mineral density about the L hip (g/cm2): 0.973 T Score values are as follows: -----R Neck: -0.7 -----L Neck: -0.5 -----R Total: 0.2 -----L Total: 0.8 Bone mineral density has: decreased -1.1 % since study of: 04.11.2019 FRAX%s: The graph provided illustrates a 12.3% chance for a major osteoporotic fx and a 0.9% chance f or the hips probability for fx in 10 years time. IMPRESSION: Osteopenia (T Score between -2.5 and -1). There is slightly increased risk of fracture and the patient may be considered for treatment. Re-Screen 2-5 years. NOTE: T-SCORE=SD OF THE YOUNG ADULT MEAN.
--- NOTE | 2021-12-16 08:45 | MM ---
Reason for Exam: Screening (asymptomatic). Last mammogram was performed 2 year(s) and 8 month(s) ago. Patient History: Menarche at age 12. Patient has no children. Postmenopausal. Estrogen for 6 months. Patient used Hormonal Contraceptives for 5 years. Risk Values: Mariya 5 year model risk: 2.1%. NCI Lifetime model risk: 6.1%. Prior Study Comparison: 09/22/2012 Screening Mammogram, [facility]. 01/07/2016 Bilateral Screening Mammogram, [facility]. 04/11/2019 Bilateral Screening Mammogram, [facility]. Tissue Density: The breast tissue is heterogeneously dense. This may lower the sensitivity of mammography. Findings: Analyzed By CAD. No suspicious groups of microcalcifications, spiculated or lobular masses, architectural distortion or other secondary signs of malignancy are mammographically apparent. Overall Assessment: Benign, BI-RAD 2 Management: Screening Mammogram of both breasts in 1 year. A negative mammogram report should not preclude additional follow up of suspicious palpable abnormalities. Patient should continue monthly self breast exam. A clinical breast exam by your physician is recommended on an annual basis and results should be correlated with mammographic findings. Electronically signed and approved by: Mac Manzanares D.O. Radiologis
== END | disposition home or self-care (01) ==
LOC: RADMAMWWP 15:00
PROVIDERS: ATTEND Family Medicine
DX: Z12.31 Encounter for screening mammogram for malignant neoplasm of breast (principal); M85.88 Other specified disorders of bone density and structure, other site; Z78.0 Asymptomatic menopausal state
CPT/HCPCS: 77063; 77067; 77080

== ENCOUNTER 2022-01-20 09:34 | Day surgery (SDC) | payer MEDICARE, BC ==
[2022-01-19 10:04] VITALS: BMI 34.2
[~2022-01-20 09:34] MED LIST changes: -ACETAMINOPHEN TAB 325 MG TAB ONE; -AMITRIPTYLINE HCL 50 MG TAB PO SCH; -ASPIRIN 81 MG ONE; -ASPIRIN 81 MG PO SCH; -HEPARIN SODIUM 1,000 UN/ML (10ML VL) ONE; +HEPARIN SODIUM,PORCINE 10,000 UNIT in SODIUM CHLORIDE 0.9% 1,000 ML IRRIGATION PRN; +HEPARIN SODIUM,PORCINE 2,500 UNIT in SODIUM CHLORIDE 0.9% 250 ML IRRIGATION PRN; -IOPAMIDOL-370 125ML BTL INJ ONE; -ISOSORBIDE MONONITRATE ER 30 MG TAB.ER.24H PO SCH; -LEVOTHYROXINE 75 MCG TAB PO SCH; -LIDOCAINE 1% INJ 10MG/ML (20 ML MDV) ONE; -LIDOCAINE 1% INJ 10MG/ML (20 ML MDV) SQ ONE; -METOPROLOL TARTRATE 50 MG TAB PO SCH; -MIDAZOLAM 2 MG/2 ML VIAL IV ONE; -MULTIVITAMINS, THERA 1 EACH TAB PO SCH; -NITROGLYCERIN 1000MCG/10ML SYRINGE INTRACORON ONE; -PANTOPRAZOLE 40 MG TABLET PO SCH; -RX INFO: IV CONTRAST WAS GIVEN 1 EACH MISC MISCELLANE PRN; -SODIUM CHLORIDE 0.9% 1,000 ML IV ONE; -SODIUM CHLORIDE 0.9% 1,000 ML IV SCH; -VERAPAMIL 2.5 MG/ML 2 ML AMP ONE; -VERAPAMIL SYRINGE (5 MG/10 ML) INTRAARTER ONE; -fentaNYL (PF) 50 MCG/ML 2 ML AMP IV ONE; -fentaNYL (PF) 50 MCG/ML 2 ML AMP ONE
[2022-01-20] MEDS ORDERED: SODIUM CHLORIDE 0.9% 1,000 ML IV ONE (09:45)
[2022-01-20] MEDS ORDERED: ASPIRIN 81 MG ONE (10:01)
[2022-01-20 10:10] VITALS: RESP 18; TEMP 98
[2022-01-20 10:11] LABS: Glucose,Whole Blood 194 mg/dL (70-110)
[2022-01-20] MEDS ORDERED: fentaNYL (PF) 50 MCG/ML 2 ML AMP IV ONE (11:53)
[2022-01-20] MEDS ORDERED: LIDOCAINE 1% INJ 10MG/ML (5 ML VIAL-PF) SQ ONE (11:57)
[2022-01-20] MEDS ORDERED: MIDAZOLAM 2 MG/2 ML VIAL IV ONE (11:57)
[2022-01-20] MEDS ORDERED: VERAPAMIL SYRINGE (5 MG/10 ML) INTRAARTER ONE (11:58)
[2022-01-20] MEDS ORDERED: HEPARIN SODIUM 1,000 UN/ML (10ML VL) IV ONE (12:04)
[2022-01-20] MEDS ORDERED: IOPAMIDOL-370 125ML BTL INJ ONE (12:08)
[2022-01-20] MEDS ORDERED: RX INFO: IV CONTRAST WAS GIVEN 1 EACH MISC MISCELLANE PRN (12:18)
--- NOTE | 2022-01-20 12:25 | P.CARDCATH ---
Date of Procedure: 01/20/22 Description of Procedure: Cardiac Catheterization: The patient is a 71-year-old female with a known history of CAD, hypertension, hyperlipidemia and diabetes mellitus who has been complaining of progressive dyspnea on exertion. She had an abnormal MPI. Recommendations were made regarding cardiac catheterization, the risks and the complications were discussed with the patient who is in full understanding and agreement. Procedure Description: Patient was brought to agriculture laboratory technician in fasting semi-sedated state after receiving Fentanyl and Benadryl achieiving moderate conscious sedated state. Using Xylocaine Anesthesia and Seldinger technique, a 6-Bulgarian sheath was introduced in the right radial artery . Subsequently, selective coronary angiography was performed using a 5-Bulgarian 3.5 bend Clarita catheter. Multiple views of the coronary artery including hemiaxial views were obtained. The 5-Bulgarian right Clarita catheter was used to cross the aortic valve and LVEDP was calculated. Following that, catheter and sheath were removed. Hemostasis was obtained with deployment of TR band . There was no imme diate complication. Patient was returned to room in stable condition. Of note, the patient received a total of 5000 units of intravenous heparin as well as intra-arterial verapamil. Findings: Left main: This is a large-size vessel, bifurcating to LAD and left circumflex, left main has no high-grade stenosis LAD: This is a large-size vessel, reaching to the apex, the LAD has mild disease in the mid and distal segment of 30-40% with no high-grade stenosis. Left circumflex: This is a nondominant vessel, large in caliber, giving rise to a large branching obtuse marginal branch, the left circumflex has mild intimal disease of 10-20% with no high-grade stenosis. RCA: This is a large dominant vessel, bifurcating into PDA and PLV, the RCA has 30% plaque in the midsegment and another plaque distally of mild stenosis with no high-grade lesions. Left Ventriculogram: Not performed Hemodynamics: There was no gradient across the aortic valve, LVEDP was is 16 -20 mmHg Conclusion: 1. Mild triple vessel disease 2. Mildly elevated LVEDP 3. Improvement in the lesion of the distal LAD in comparison to 2020 Recommendations: I have recommended to continue medical therapy, there is improvement in her lesion of the distal LAD and the RCA is not significant lesion. The findings and the recommendations were discussed with the patient and the family and they were in full understanding and agreement. Duration of sedation is 14 minutes.
[2022-01-20] MEDS ORDERED: SODIUM CHLORIDE 0.9% 1,000 ML IV SCH (12:30)
[2022-01-20 14:22] VITALS: BP 154/72; PULSE 74
[2022-01-20] MEDS ORDERED: METOPROLOL TARTRATE 50 MG TAB PO SCH (21:00)
[2022-01-20] MEDS ORDERED: AMITRIPTYLINE HCL 50 MG TAB PO SCH (21:00)
[2022-01-20] MEDS ORDERED: PANTOPRAZOLE 40 MG TABLET PO SCH (21:00)
[2022-01-21] MEDS ORDERED: LEVOTHYROXINE 75 MCG TAB PO SCH (06:30)
[2022-01-21] MEDS ORDERED: ASPIRIN 81 MG PO SCH (09:00)
[2022-01-21] MEDS ORDERED: ESCITALOPRAM 20 MG TAB PO SCH (09:00)
== END 2022-01-20 15:34 | disposition home or self-care (01) ==
LOC: CATHCVL 09:34
PROVIDERS: ATTEND Internal Medicine Interventional Cardiology
DX: I25.10 Atherosclerotic heart disease of native coronary artery without angina pectoris (principal); E78.00 Pure hypercholesterolemia, unspecified; I10 Essential (primary) hypertension; E11.9 Type 2 diabetes mellitus without complications; E78.5 Hyperlipidemia, unspecified; Z20.822 Contact with and (suspected) exposure to COVID-19; R94.39 Abnormal result of other cardiovascular function study; Z79.82 Long term (current) use of aspirin; Z79.899 Other long term (current) drug therapy; Z88.5 Allergy status to narcotic agent; Z88.0 Allergy status to penicillin; Z88.7 Allergy status to serum and vaccine; Z90.49 Acquired absence of other specified parts of digestive tract; Z96.659 Presence of unspecified artificial knee joint; Z87.891 Personal history of nicotine dependence
CPT/HCPCS: 93458; 87635; C1769 ×3; C1894; J2250; J2001; J3010; J1644; Q9967

== ENCOUNTER 2022-05-28 07:16 | Day surgery (SDC) | payer MEDICARE, BC ==
[2022-05-26 16:14] VITALS: BMI 34.2
[~2022-05-28 07:16] MED LIST changes: -ALPRAZolam 0.25 MG TAB PO PRN; -ALPRAZolam 0.5 MG TAB PO PRN; -ASPIRIN 325 MG TAB PO STA; -ATORVASTATIN 80 MG TAB PO STA; -HEPARIN SODIUM,PORCINE 10,000 UNIT in SODIUM CHLORIDE 0.9% 1,000 ML IRRIGATION PRN; -HEPARIN SODIUM,PORCINE 2,500 UNIT in SODIUM CHLORIDE 0.9% 250 ML IRRIGATION PRN; +LACTATED RINGERS 1,000 ML IV SCH; -NITROGLYCERIN SL TABS 0.4 MG TAB SUBLINGUAL PRN; -SODIUM CHLORIDE 0.9% 1,000 ML in EMPTY BAG 1 BAG IV ONE
[2022-05-28 07:34] VITALS: RESP 16; TEMP 97.8
[2022-05-28 07:47] LABS: Glucose,Whole Blood 155 mg/dL (70-110)
[2022-05-28] MEDS ORDERED: PROPOFOL 10 MG/ML 20 ML VIAL IV ONE (08:28)
[2022-05-28] MEDS ORDERED: LIDOCAINE 2% INJ 20 MG/ML (2 ML VIAL) ONE (08:28)
--- NOTE | 2022-05-28 09:20 | P.PCN ---
Date of Procedure: 05/28/22 Procedure(s) Performed: Brief history: Patient is a pleasant 71-year-old white female scheduled for an elective upper endoscopy as well as colonoscopy as a part of evaluation of long-standing history of GERD/severe heartburn and Pr history of colon polypsocedure performed: Esophagogastroduodenoscopy with biopsy Colonoscopy with snare polypectomy Preoperative diagnosis: GERD History of colon polyps Anesthesia: MAC Procedure: After informed consent was obtained from the patient was brought into the endoscopy unit and IV sedation was administered by anesthesia under continuous monitoring. Initially upper endoscopy was done. The Olympus GF 160 video endoscope was inserted inserted into the mouth and esophagus intubated without any difficulty and was gradually advanced into the stomach and duodenum and carefully examined. The bulb and second part of the duodenum appeared normal. The scope was then withdrawn into the stomach adequately insufflated with air and upon careful examination the antrum had diffuse gastritis and biopsies were done from this area. In the gastric body there were a few polyps identified which was biopsied. Rest of the body, cardia and fundus appeared normal. The scope was then withdrawn into the esophagus. The GE junction was located at 40 cm to the incisors. It appeared regular with no erythema erosions or ulcerations. Rest of the esophagus appeared normal. small distal esophageal varices were noted. Patient tolerated the procedure well. At this time the patient continued to remain sedation. Initial digital rectal examination was normal. Olympus CF 160 video colonoscope was then inserted into the rectum and gradually advanced to the cecum without any difficulty. Careful examination was performed as the scope was gradually being withdrawn. The prep was excellent. The cecum, appeared normal. Ascending colon there was a 1 cm polyp removed by snare polypectomy. Rest of the ascending colon, transverse colon, descending colon, sigmoid colon and rectum appeared normal. Retroflexion was performed in the rectum and no lesions were noted. Patient tolerated the procedure well. Impression: 1. Upper endoscopy revealed diffuse antral gastritis and gastric polyps status post biopsy 2. Colonoscopy revealed 1 cm ascending colon polyp status post polypectomy and the rest of the colon appeared normal Recommendations: Findings of this examination were discussed with the patient as well as her family. She was advised to follow with the biopsy results. In the meantime suggested that she increase the lansoprazole 30 mg twice daily and follow antrum reflux measures. If she still remains symptomatic weeks weeks she was advised to follow up in office.
[2022-05-28 09:22] VITALS: BP 161/85; PULSE 77
== END 2022-05-28 09:44 | disposition home or self-care (01) ==
LOC: ORWHC2ENDO 07:16
PROVIDERS: ATTEND Internal Medicine Gastroenterology
DX: Z12.11 Encounter for screening for malignant neoplasm of colon (principal); K51.40 Inflammatory polyps of colon without complications; K29.50 Unspecified chronic gastritis without bleeding; K31.7 Polyp of stomach and duodenum; I85.00 Esophageal varices without bleeding; K76.0 Fatty (change of) liver, not elsewhere classified; K21.9 Gastro-esophageal reflux disease without esophagitis; I10 Essential (primary) hypertension; E78.5 Hyperlipidemia, unspecified; J44.9 Chronic obstructive pulmonary disease, unspecified; Z79.51 Long term (current) use of inhaled steroids; G47.33 Obstructive sleep apnea (adult) (pediatric); E03.9 Hypothyroidism, unspecified; Z79.890 Hormone replacement therapy; E11.9 Type 2 diabetes mellitus without complications; Z79.84 Long term (current) use of oral hypoglycemic drugs; Z79.899 Other long term (current) drug therapy; Z88.0 Allergy status to penicillin; Z88.1 Allergy status to other antibiotic agents
CPT/HCPCS: 45385; 43239; J2704; J2001; 88305

== ENCOUNTER 2022-12-14 11:39 | Observation (INO) | payer MEDICARE ==
[2022-12-14 12:39] LABS: Basophils % (A) 0 %; Eosinophils # (A) 0.1 k/uL (0-0.7); Eosinophils % (A) 2 %; HCT 32.4 % (34.0-46.0); HGB 10.7 gm/dL (11.4-16.0); Lymphocytes # (A) 2.4 k/uL (1.0-4.8); Lymphocytes % (A) 33 %; MCH 29.4 pg (25.0-35.0); MCHC 33.1 g/dL (31.0-37.0); MCV 89.1 fL (80.0-100.0); Mean Platelet Volume 8.5; Monocytes # (A) 0.3 k/uL (0-1.0); Monocytes % (A) 4 %; Neutrophils # (A) 4.4 k/uL (1.3-7.7); Neutrophils % (A) 60 %; Platelet Count 129 k/uL (150-450); RBC 3.63 m/uL (3.80-5.40); RDW 15.2 % (11.5-15.5); WBC 7.3 k/uL (3.8-10.6)
--- NOTE | 2022-12-14 12:49 | ED ---
SOB HPI - General Chief Complaint: Shortness of Breath Stated Complaint: SOB Time Seen by Provider: 12/14/22 11:49 Source: patient Mode of arrival: ambulatory Limitations: no limitations - History of Present Illness Initial Comments: Patient is a 72-year-old female who presents the emergency department for shortness of breath. Patient reports shortness of breath for the past several months which has worsening since Tuesday. She has history of COPD she does not wear supplemental oxygen. She uses an inhaler as needed prescribed by her primary care provider. Patient states she has been on prednisone for several months after having COVID-19. States on Tuesday she was prescribed a different medication for her inhaler. She cannot remember the name but states her symptoms have worsened since then. Patient feels short of breath mostly with activity. Denies chest pain. Denies calf pain and swelling. She does admit to dry cough. Denies fever, chills, nausea, vomiting. - Related Data Home Medications Medication Instructions Recorded Confirmed Albuterol Inhaler [Ventolin Hfa 1 - 2 puff INHALATION Q6HR PRN 07/07/16 05/28/22 Inhaler] Metoprolol Tartrate [Lopressor] 50 mg PO BID 07/07/16 05/28/22 Multivitamins, Thera [Multivitamin 1 tab PO DAILY 07/07/16 05/26/22 (formulary)] metFORMIN HCL [Glucophage] 1,000 mg PO BID 07/07/16 05/28/22 ALPRAZolam [Xanax] 0.125 - 0.25 mg PO DAILY PRN 05/14/20 05/28/22 Amitriptyline HCl [Elavil] 150 mg PO HS 05/14/20 05/28/22 Fluticasone Nasal [place] [Flonase 1 spray EA NOSTRIL DAILY 05/14/20 05/26/22 Nasal [place]] Levothyroxine Sodium [Synthroid] 75 mcg PO QAM 05/14/20 05/28/22 Omeprazole [PriLOSEC] 40 mg PO HS 05/14/20 05/28/22 Escitalopram [Lexapro] 10 mg PO QAM 01/19/22 05/28/22 Vitamin B Complex 1 each PO DAILY 01/19/22 05/28/22 Cholecalciferol [Vitamin D3 (25 25 mcg PO DAILY 05/26/22 05/26/22 Mcg = 1000 Iu)] Clobetasol Propionate [Temovate 1 applic TOPICAL DAILY PRN 05/26/22 05/28/22 0.05% Cream] Evolocumab [Repatha Sureclick] 1 dose SQ Q30D 05/26/22 05/28/22 Previous Rx's Medication Instructions Recorded Aspirin 81 mg PO DAILY chew 05/19/20 Allergies Allergy/AdvReac Type Severity Reaction Status Date / Time erythromycin base Allergy Severe burning Verified 12/14/22 11:45 pain to esophagus/stomach Sulfa (Sulfonamide Allergy Unknown Verified 12/14/22 11:45 Antibiotics) hydrocodone [From Vicodin] AdvReac Severe Vomiting Verified 12/14/22 11:45 Penicillins AdvReac Diarrhea Verified 12/14/22 11:45 Review of Systems ROS Statement: Those systems with pertinent positive or pertinent negative responses have been documented in the HPI. ROS Other: All systems not noted in ROS Statement are negative. Past Medical History Past Medical History: COPD, Diabetes Mellitus, Fibromyalgia, GERD/Reflux, Hyper lipidemia, Hypertension, Liver Disease, Osteoarthritis (OA), Rheumatoid Arthritis (RA), Skin Disorder, Thyroid Disorder Additional Past Medical History / Comment(s): abdominal cramping, hx migraines, SOB with chest pain, heart murmer, hx ulcer, hiatal hernia, IBS, fatty liver, hx gout, psoriasis History of Any Multi-Drug Resistant Organisms: None Reported Past Surgical History: Appendectomy, Heart Catheterization, Joint Replacement, Tonsillectomy Additional Past Surgical History / Comment(s): blocked tear duct left eye, dinh cataracts , rt knee replacement Past Anesthesia/Blood Transfusion Reactions: No Reported Reaction Past Psychological History: Anxiety Smoking Status: Former smoker Past Alcohol Use History: None Reported Past Drug Use History: None Reported - Past Family History Mother Family Medical History: Cancer Additional Family Medical History / Comment(s): lung General Exam Limitations: no limitations General appearance: alert, in no apparent distress Eye exam: Present: normal appearance, PERRL, EOMI. Absent: scleral icterus, conjunctival injection, periorbital swelling Respiratory exam: Present: normal lung sounds bilaterally. Absent: respiratory distress, wheezes, rales, rhonchi, stridor Cardiovascular Exam: Present: regular rate, normal rhythm, normal heart sounds. Absent: systolic murmur, diastolic murmur, rubs, gallop, clicks Extremities exam: Present: full ROM, normal capillary refill, other (Minimal left ankle swelling). Absent: tenderness, calf tenderness Neurological exam: Present: alert, oriented X3, CN II-XII intact Psychiatric exam: Present: normal affect, normal mood Skin exam: Present: warm, dry, intact, normal color. Absent: rash Course Vital Signs 12/14/22 12/14/22 12/14/22 11:41 11:53 14:57 Temperature 98.6 F Pulse Rate 77 71 73 Respiratory 18 22 18 Rate Blood Pressure 143/79 116/66 162/87 O2 Sat by Pulse 97 98 97 Oximetry 12/14/22 17:11 Temperature Pulse Rate 79 Respiratory 18 Rate Blood Pressure O2 Sat by Pulse Oximetry Medical Decision Making - Medical Decision Making EKG taken at 11:59, interpreted by myself sinus rhythm, no ST segment or T-wave abnormality Ventricular rate 70, QRS duration 63, QTc 386 Was pt. sent in by a medical professional or institution (, PA, MACHINE SHOP INSPECTOR, urgent care, hospital, or custodial...) When possible be specific @ -No Did you speak to anyone other than the patient for history (EMS, parent, family, police, friend...)? What history was obtained from this source @ -No Did you review nursing and triage notes (agree or disagree)? Why? @ -I reviewed and agree with nursing and triage notes Were old charts reviewed (outside hosp., previous admission, EMS record, old EKG, old radiological studies, urgent care reports/EKG's, custodial records)? Report findings @ -No old charts were reviewed Differential Diagnosis (chest pain, altered mental status, abdominal pain women, abdominal pain men, vaginal bleeding, weakness, fever, dyspnea, syncope, headache, dizziness, GI bleed, back pain, seizure, CVA, palpatations, mental health)? @ -Differential Dyspnea: Coronary syndrome, arrhythmia, tamponade, asthma, COPD, pulmonary embolism, pneumonia, pneumothorax, pulmonary effusion, anaphylaxis, diabetic ketoacidosis, flailed chest, pulmonary contusion, diaphragmatic rupture, anemia, neuromuscular, this is not meant to be an all-inclusive list. EKG interpreted by me (3pts min.). @ -As above X-rays interpreted by me (1pt min.). @ -COPD changes without acute process CT interpreted by me (1pt min.). @ -None done U/S interpreted by me (1pt. min.). @ -None done What testing was considered but not performed or refused? (CT, X-rays, U/S, labs)? Why? @ -None What meds were considered but not given or refused? Why? @ -None Did you discuss the management of the patient with other professionals (professionals i.e. Dr., PA, MACHINE SHOP INSPECTOR, lab, RT, psych nurse, social work faculty member, field examiner, teacher, drug abuse resistance education officer, case repairer)? Give summary @ -No Was smoking cessation discussed for >3mins.? @ -No Was critical care preformed (if so, how long)? @ -No Were there social determinants of health that impacted care today? How? (Homelessness, low income, unemployed, alcoholism, drug addiction, transportation, low edu. Level, literacy, decrease access to med. care, half-way, rehab)? @ -No Was there de-escalation of care discussed even if they declined (Discuss DNR or withdrawal of care, Hospice)? DNR status @ -No What co-morbidities impacted this encounter? (DM, HTN, Smoking, COPD, CAD, Cancer, CVA, ARF, Chemo, Hep., AIDS, mental health diagnosis, sleep apnea, morbid obesity)? @ -None Was patient admitted / discharged? Hospital course, mention meds given and route, prescriptions, significant lab abnormalities, going to OR and other pertinent info. @ -Patient presenting for shortness of breath. Patient is well-appearing no evidence of respiratory distress. EKG interpreted by myself no evidence of acute ischemia. Troponin within normal limits. D-dimer is elevated at 4.77. Patient cannot have scan with contrast for PE due to CKD.. Case discussed with Dr. John patient will be admitted to observation for VQ scan and further evaluation. Undiagnosed new problem with uncertain prognosis? @ -No Drug Therapy requiring intensive monitoring for toxicity (Heparin, Nitro, Insulin, Cardizem)? @ -No Were any procedures done? @ -No Diagnosis/symptom? @ -dyspnea, elevated d-dimer Acute, or Chronic, or Acute on Chronic? @ -acute on chronic Uncomplicated (without systemic symptoms) or Complicated (systemic symptoms)? @ -default Side effects of treatment? @ -No Exacerbation, Progression, or Severe Exacerbation? @ -No Poses a threat to life or bodily function? How? (Chest pain, [place], [place], pneumonia, PE, COPD, DKA, ARF, appy, cholecystitis, CVA, Diverticulitis, Homicidal, Suicidal, threat to staff... and all critical care pts) @ -yes Dr. Stark is my attending - Lab Data Result diagrams: 12/14/22 12:04 12/14/22 12:04 Lab Results 12/14/22 12/14/22 12/14/22 Range/Units 12:04 12:04 12:04 WBC 7.3 (3.8-10.6) k/uL RBC 3.63 L (3.80-5.40) m/uL Hgb 10.7 L (11.4-16.0) gm/dL Hct 32.4 L (34.0-46.0) % MCV 89.1 (80.0-100.0) fL MCH 29.4 (25.0-35.0) pg MCHC 33.1 (31.0-37.0) g/dL RDW 15.2 (11.5-15.5) % Plt Count 129 L (150-450) k/uL MPV 8.5 Neutrophils % 60 % Lymphocytes % 33 % Monocytes % 4 % Eosinophils % 2 % Basophils % 0 % Neutrophils # 4.4 (1.3-7.7) k/uL Lymphocytes # 2.4 (1.0-4.8) k/uL Monocytes # 0.3 (0-1.0) k/uL Eosinophils # 0.1 (0-0.7) k/uL Basophils # 0.0 (0-0.2) k/uL PT 11.0 (9.0-12.0) sec INR 1.0 (<1.2) APTT 21.2 L (22.0-30.0) sec D-Dimer 4.77 H (<0.60) mg/L FEU Sodium 136 L (137-145) mmol/L Potassium 4.5 (3.5-5.1) mmol/L Chloride 105 (98-107) mmol/L Carbon Dioxide 22 (22-30) mmol/L Anion Gap 9 mmol/L BUN 19 H (7-17) mg/dL Creatinine 1.20 H (0.52-1.04) mg/dL Est GFR (CKD-EPI)AfAm 53 (>60 ml/min/1.73 sqM) Est GFR (CKD-EPI)NonAf 46 (>60 ml/min/1.73 sqM) Glucose 216 H (74-99) mg/dL Lactic Ac Sepsis Rflx Plasma Lactic Acid Payam (0.7-2.0) mmol/L Calcium 8.7 (8.4-10.2) mg/dL Total Bilirubin 0.6 (0.2-1.3) mg/dL AST 53 H (14-36) U/L ALT 52 H (4-34) U/L Alkaline Phosphatase 87 (38-126) U/L Troponin I (0.000-0.034) ng/mL NT-Pro-B Natriuret Pep pg/mL Total Protein 6.4 (6.3-8.2) g/dL Albumin 3.6 (3.5-5.0) g/dL Influenza Type A (PCR) (Not Detectd) Influenza Type B (PCR) (Not Detectd) RSV (PCR) (Not Detectd) SARS-CoV-2 (PCR) (Not Detectd) 12/14/22 12/14/22 12/14/22 Range/Units 12:04 12:04 12:04 WBC (3.8-10.6) k/uL RBC (3.80-5.40) m/uL Hgb (11.4-16.0) gm/dL Hct (34.0-46.0) % MCV (80.0-100.0) fL MCH (25.0-35.0) pg MCHC (31.0-37.0) g/dL RDW (11.5-15.5) % Plt Count (150-450) k/uL MPV Neutrophils % % Lymphocytes % % Monocytes % % Eosinophils % % Basophils % % Neutrophils # (1.3-7.7) k/uL Lymphocytes # (1.0-4.8) k/uL Monocytes # (0-1.0) k/uL Eosinophils # (0-0.7) k/uL Basophils # (0-0.2) k/uL PT (9.0-12.0) sec INR (<1.2) APTT (22.0-30.0) sec D-Dimer (<0.60) mg/L FEU Sodium (137-145) mmol/L Potassium (3.5-5.1) mmol/L Chloride (98-107) mmol/L Carbon Dioxide (22-30) mmol/L Anion Gap mmol/L BUN (7-17) mg/dL Creatinine (0.52-1.04) mg/dL Est GFR (CKD-EPI)AfAm (>60 ml/min/1.73 sqM) Est GFR (CKD-EPI)NonAf (>60 ml/min/1.73 sqM) Glucose (74-99) mg/dL Lactic Ac Sepsis Rflx Plasma Lactic Acid Payam 4.1 H* (0.7-2.0) mmol/L Calcium (8.4-10.2) mg/dL Total Bilirubin (0.2-1.3) mg/dL AST (14-36) U/L ALT (4-34) U/L Alkaline Phosphatase (38-126) U/L Troponin I <0.012 (0.000-0.034) ng/mL NT-Pro-B Natriuret Pep 144 pg/mL Total Protein (6.3-8.2) g/dL Albumin (3.5-5.0) g/dL Influenza Type A (PCR) (Not Detectd) Influenza Type B (PCR) (Not Detectd) RSV (PCR) (Not Detectd) SARS-CoV-2 (PCR) (Not Detectd) 12/14/22 12/14/22 Range/Units 12:36 12:54 WBC (3.8-10.6) k/uL RBC (3.80-5.40) m/uL Hgb (11.4-16.0) gm/dL Hct (34.0-46.0) % MCV (80.0-100.0) fL MCH (25.0-35.0) pg MCHC (31.0-37.0) g/dL RDW (11.5-15.5) % Plt Count (150-450) k/uL MPV Neutrophils % % Lymphocytes % % Monocytes % % Eosinophils % % Basophils % % Neutrophils # (1.3-7.7) k/uL Lymphocytes # (1.0-4.8) k/uL Monocytes # (0-1.0) k/uL Eosinophils # (0-0.7) k/uL Basophils # (0-0.2) k/uL PT (9.0-12.0) sec INR (<1.2) APTT (22.0-30.0) sec D-Dimer (<0.60) mg/L FEU Sodium (137-145) mmol/L Potassium (3.5-5.1) mmol/L Chloride (98-107) mmol/L Carbon Dioxide (22-30) mmol/L Anion Gap mmol/L BUN (7-17) mg/dL Creatinine (0.52-1.04) mg/dL Est GFR (CKD-EPI)AfAm (>60 ml/min/1.73 sqM) Est GFR (CKD-EPI)NonAf (>60 ml/min/1.73 sqM) Glucose (74-99) mg/dL Lactic Ac Sepsis Rflx Y Plasma Lactic Acid Payam (0.7-2.0) mmol/L Calcium (8.4-10.2) mg/dL Total Bilirubin (0.2-1.3) mg/dL AST (14-36) U/L ALT (4-34) U/L Alkaline Phosphatase (38-126) U/L Troponin I (0.000-0.034) ng/mL NT-Pro-B Natriuret Pep pg/mL Total Protein (6.3-8.2) g/dL Albumin (3.5-5.0) g/dL Influenza Type A (PCR) Not Detected (Not Detectd) Influenza Type B (PCR) Not Detected (Not Detectd) RSV (PCR) Not Detected (Not Detectd) SARS-CoV-2 (PCR) Not Detected (Not Detectd) Disposition Clinical Impression: Dyspnea, Elevated d-dimer Disposition: [facility] Condition: Stable
[2022-12-14 12:52] LABS: ALT 52 U/L (4-34); AST 53 U/L (14-36); African American GFR (CKD) 53 (>60 ml/min/1.73 sqM); Albumin 3.6 g/dL (3.5-5.0); Anion Gap 9 mmol/L; Blood Urea Nitrogen 19 mg/dL (7-17); Calcium 8.7 mg/dL (8.4-10.2); Carbon Dioxide 22 mmol/L (22-30); Chloride 105 mmol/L (98-107); Glucose 216 mg/dL (74-99); Non-African American GFR(CKD) 46 (>60 ml/min/1.73 sqM); Potassium 4.5 mmol/L (3.5-5.1); Sodium 136 mmol/L (137-145); Total Bilirubin 0.6 mg/dL (0.2-1.3); Total Protein 6.4 g/dL (6.3-8.2)
[2022-12-14 12:53] LABS: Alkaline Phosphatase 87 U/L (38-126)
--- NOTE | 2022-12-14 13:00 | XR ---
EXAMINATION TYPE: XR chest 2V DATE OF EXAM: 12/14/2022 COMPARISON: NONE TECHNIQUE: PA and lateral views submitted. HISTORY: difficulty breathing FINDINGS: The lungs are clear and there is no pneumothorax, pleural effusion, or focal pneumonia. Heart size normal and no overt failure. Osseous structures demonstrate hypertrophic and degenerative changes of the spine. IMPRESSION: 1. No acute process.
[2022-12-14] MEDS ORDERED: SODIUM CHLORIDE 0.9% 1,000 ML IV STA (13:04)
[2022-12-14] MEDS ORDERED: SODIUM CHLORIDE 0.9% 500 ML 500 ML IV STA (13:05)
[2022-12-14 13:22] LABS: Partial Thromboplastin Time 21.2 sec (22.0-30.0)
[2022-12-14] MEDS ORDERED: ALBUTEROL NEBULIZED 2.5 MG/3 ML INHALATION STA (13:44)
[2022-12-14] MEDS ORDERED: methylPREDNISolone SOD SUCCI 125 MG/2 ML VIAL IV STA (13:44)
[2022-12-14] MEDS ORDERED: ENOXAPARIN 80 MG/0.8 ML SYRINGE SQ STA (13:45)
[2022-12-14] MEDS ORDERED: NALOXONE 0.4 MG/ML 1 ML VIAL IV PRN (13:47)
[2022-12-14] MEDS: SODIUM CHLORIDE 0.9% 1,000 ML IV SCH (14:53)
--- NOTE | 2022-12-14 16:50 | NM ---
EXAMINATION TYPE: NM pul vent and perfuse DATE OF EXAM: 12/14/2022 CLINICAL INDICATION: Female, 72 years old with history of shortness of breath, GALLITO, pos dimer; COMPARISON: Radiograph same day TECHNIQUE: Utilizing inhalation of 34.7 mCi Tc 99m DTPA aerosol and intravenous injection of 4.92 mC i of Tc 99m MAA, ventilation and perfusion images are acquired post injection in multiple projections . FINDINGS: No perfusion defect is identified. Mild heterogeneity of ventilation or perfusion in both lungs. Ther e is some clumping of tracer within the central airways on ventilation images. IMPRESSION: 1. Very low probability for pulmonary embolus. 2. Radiotracer clumped in the central airways which may be seen in the setting of COPD.
[2022-12-14] MEDS ORDERED: SODIUM CHLORIDE 0.9% 100 ML BAG IV SCH (20:15)
[2022-12-14] MEDS ORDERED: SODIUM CHLORIDE 0.9% 500 ML 500 ML IV ONE (20:19)
[2022-12-14 21:53] LABS: Glucose,Whole Blood 543 mg/dL (70-110)
[2022-12-14] MEDS ORDERED: DEXTROSE 50% SYRINGE 50 ML IVP PRN ×2 (21:55)
[2022-12-14] MEDS ORDERED: NON FORMULARY DRUG (Evolocumab [Repatha Sureclick] 140 MG/ML Each) SQ SCH (22:00)
[2022-12-14] MEDS ORDERED: metFORMIN 500 MG TAB PO SCH (22:00)
[2022-12-14] MEDS: INSULIN DETEMIR (LEVEMIR) 100 UNIT/ML SYR SQ SCH (22:30)
[2022-12-14] MEDS: INSULIN ASPART (NovoLOG) 100 UNIT/ML VIAL SQ SCH (22:30)
[2022-12-14] MEDS: AMITRIPTYLINE HCL 50 MG TAB PO SCH (22:30)
[2022-12-14] MEDS: METOPROLOL TARTRATE 50 MG TAB PO SCH (22:30)
[2022-12-15 05:29] LABS: Glucose,Whole Blood 485 mg/dL (70-110)
[2022-12-15 05:29] LABS: Glucose,Whole Blood 515 mg/dL (70-110)
[2022-12-15] MEDS: SODIUM CHLORIDE 0.9% 500 ML 500 ML IV SCH ×3 (06:04→23:48)
[2022-12-15 06:05] LABS: Glucose,Whole Blood 265 mg/dL (70-110)
[2022-12-15] MEDS: SODIUM CHLORIDE 0.9% 1,000 ML IV SCH ×3 (06:05→20:41)
[2022-12-15] MEDS: methylPREDNISolone SOD SUCCI 125 MG/2 ML VIAL IV SCH ×3 (06:05→12:58)
[2022-12-15] MEDS ORDERED: IPRATROPIUM-ALBUTEROL 3 ML NEB INHALATION PRN (06:18)
[2022-12-15] MEDS: LEVOTHYROXINE 75 MCG TAB PO SCH (06:25)
[2022-12-15] MEDS: INSULIN ASPART (NovoLOG) 100 UNIT/ML VIAL SQ SCH ×4 (06:25→20:54)
--- NOTE | 2022-12-15 06:33 | P.CNPUL ---
History of Present Illness Consult date: 12/15/22 Requesting physician: Tanisha Yo Reason for consult: dyspnea Chief complaint: Shortness of breath since Tuesday History of present illness: I am seeing this patient in new consultation today 12/15/2022 for progressive shortness of breath starting last Tuesday. Patient is a 80-year-old female with past medical history significant for COPD, CAD, hypertension, hyperlipidemia, diabetes mellitus type 2, obesity, hypothyroidism, GERD, fibromyalgia and is a remote ex-smoker. Patient follows with her PCP Marquita Delgadillo. 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 Patient presented to the emergency room yesterday afternoon complaining of worsening shortness of breath since Tuesday. She states that her shortness of breath is especially pronounced on exertion. It is associated with mild substernal chest pressure/tightness, which resolves with rest. She has been using her as needed albuterol inhaler more often. She was reportedly recently started on a new, unknown inhaler, by her PCP. Patient currently denies any fever, chills, cough, chest pain. Denies any heart palpitations, lower extremity swelling, orthopnea, syncope. She is currently sitting up in the recliner, on room air, in no acute distress. She is not very bronchospastic on auscultation. Chest x-ray on arrival showed no acute cardiopulmonary process or evidence of pneumonia. Her d-dimer was elevated, and a follow-up VQ scan showed very low probability of pulmonary embolus. CBC on arrival is unremarkable. BMP shows sodium 136, potassium 4.5, chloride 105, serum CO2 22, BUN 19, creatinine 1.2, glucose 216. LFTs are mildly elevated. Troponin negative x 1. ECG showed no acute ischemic changes. NT proBNP was low. Lactic acid levels have been trending up in her currently 6.1. Patient will be given an additional 500 ML normal saline bolus. Normal saline currently infusing at 75 ml/hr. She was started on empiric Rocephin. Blood cultures are pending. Negative for influenza, RSV, COVID-19. Patient appears nontoxic, and is admitted to observation unit. Vital signs are stable at this time. Review of Systems REVIEW OF SYSTEMS: CONSTITUTIONAL: Denies any recent significant weight loss or weight gain. EYES: Denies change in vision. EARS, NOSE, MOUTH, THROAT: Denies headaches, denies sore throat. CARDIOVASCULAR: See HPI RESPIRATORY: Denies see HPI GASTROINTESTINAL: Denies change in appetite, abdominal pain, nausea and vomiting, or diarrhea GENITOURINARY: Denies hematuria, denies infections. MUSKULOSKELETAL: Denies pain, denies swelling. INTEGUMENTARY: Denies rash, denies eczema. NEUROLOGICAL: Denies recent memory loss, no recent seizure activity. PSYCHIATRIC: Denies anxiety, denies depression. HEMATOLOGIC/LYMPHATIC: Denies anemia, denies enlarged lymph node Past Medical History Past Medical History: COPD, Diabetes Mellitus, Fibromyalgia, GERD/Reflux, Hyperlipidemia, Hypertension, Liver Disease, Osteoarthritis (OA), Rheumatoid Arthritis (RA), Skin Disorder, Thyroid Disorder Additional Past Medical History / Comment(s): abdominal cramping, hx migraines, SOB with chest pain, heart murmer, hx ulcer, hiatal hernia, IBS, fatty liver, hx gout, psoriasis History of Any Multi-Drug Resistant Organisms: None Reported Past Surgical History: Appendectomy, Heart Catheterization, Joint Replacement, Tonsillectomy Additional Past Surgical History / Comment(s): blocked tear duct left eye, dinh cataracts , rt knee replacement Past Anesthesia/Blood Transfusion Reactions: No Reported Reaction Past Psychological History: Anxiety Smoking Status: Former smoker Past Alcohol Use History: None Reported Past Drug Use History: None Reported - Past Family History Mother Family Medical History: Cancer Additional Family Medical History / Comment(s): lung Medications and Allergies Home Medications Medication Instructions Recorded Confirmed Type Albuterol Inhaler [Ventolin Hfa 1 - 2 puff INHALATION RT-Q6H PRN 07/07/16 12/14/22 History Inhaler] Metoprolol Tartrate [Lopressor] 50 mg PO BID 07/07/16 12/14/22 History Multivitamins, Thera [Multivitamin 1 tab PO DAILY 07/07/16 12/14/22 History (formulary)] metFORMIN HCL [Glucophage] 1,000 mg PO BID 07/07/16 12/14/22 History ALPRAZolam [Xanax] 0.125 - 0.25 mg PO DAILY PRN 05/14/20 12/14/22 History Amitriptyline HCl [Elavil] 150 mg PO HS 05/14/20 12/14/22 History Fluticasone Nasal [place] [Flonase 1 spray EA NOSTRIL DAILY 05/14/20 12/14/22 History Nasal [place]] Levothyroxine Sodium [Synthroid] 75 mcg PO DAILY 05/14/20 12/14/22 History Omeprazole [PriLOSEC] 40 mg PO DAILY 05/14/20 12/14/22 History Evolocumab [Repatha Sureclick] 140 mg SQ Q30D 05/26/22 12/14/22 History Cholecalciferol [Vitamin D3 (125 125 mcg PO DAILY 12/14/22 12/14/22 History Mcg = 5000 Iu)] Escitalopram [Lexapro] 10 mg PO DAILY 12/14/22 12/14/22 History Óscar-Plex Supplement 1 tab PO DAILY 12/14/22 12/14/22 History Magnesium 250 mg PO DAILY 12/14/22 12/14/22 History predniSONE See Taper PO DIRECTED 12/14/22 12/14/22 History Allergies Allergy/AdvReac Type Severity Reaction Status Date / Time erythromycin base Allergy Severe burning Verified 12/14/22 20:02 pain to esophagus/stomach Sulfa (Sulfonamide Allergy Unknown Verified 12/14/22 20:02 Antibiotics) hydrocodone [From Vicodin] AdvReac Severe Vomiting Verified 12/14/22 20:02 Penicillins AdvReac Diarrhea Verified 12/14/22 20:02 Physical Exam Vitals: Vital Signs Temp Pulse Pulse Resp BP BP Pulse Ox 12/15/22 03:01 97.3 F L 73 18 151/85 96 12/15/22 02:00 82 12/14/22 23:43 68 153/85 97 12/14/22 22:43 17 12/14/22 22:05 93 19 186/75 94 L 12/14/22 21:16 97.6 F 102 H 23 190/113 95 12/14/22 17:22 81 18 12/14/22 17:11 79 18 12/14/22 14:57 73 18 162/87 97 12/14/22 11:53 71 22 116/66 98 12/14/22 11:41 98.6 F 77 18 143/79 97 Intake and Output 12/14/22 12/14/22 12/15/22 14:59 22:59 06:59 Intake Total 591 Balance 591 Intake: Oral 591 Other: Voiding Method Toilet Weight 88.904 kg GENERAL EXAM: Alert, 72-year-old obese female, comfortable in no apparent distress. HEAD: Normocephalic and atraumatic EYES: Normal reaction of pupils, equal size. NOSE: Clear with pink turbinates. THROAT: No erythema or exudates. NECK: No masses, no JVD. CHEST: No chest wall deformity. LUNGS: Equal air entry with no crackles, wheeze, rhonchi or dullness. On room air. No conversational dyspnea or accessory muscle use.. CVS: S1 and S2 normal with no audible murmur, regular rhythm. No extra heart sounds ABDOMEN: Obese abdomen. No hepatosplenomegaly, active bowel sounds, no guarding or rigidity. SPINE: No scoliosis or deformity SKIN: No rashes CENTRAL NERVOUS SYSTEM: No focal deficits, tone is normal in all 4 extremities. EXTREMITIES: There is 1+ bilateral lower extremity edema. No clubbing, or cyanosis. Peripheral pulses are intact. Results - Laboratory Findings CBC and BMP: 12/14/22 12:04 12/15/22 09:04 PT/INR, D-dimer PT 11.0 sec (9.0-12.0) 12/14/22 12:04 INR 1.0 (<1.2) 12/14/22 12:04 D-Dimer 4.77 mg/L FEU (<0.60) H 12/14/22 12:04 Abnormal lab findings: Abnormal Labs 12/14/22 12/14/22 12/14/22 12:04 12:04 12:04 RBC 3.63 L Hgb 10.7 L Hct 32.4 L Plt Count 129 L APTT 21.2 L D-Dimer 4.77 H Sodium 136 L BUN 19 H Creatinine 1.20 H Glucose 216 H POC Glucose (mg/dL) Plasma Lactic Acid Payam AST 53 H ALT 52 H 12/14/22 12/14/22 12/14/22 12:04 15:09 18:45 RBC Hgb Hct Plt Count APTT D-Dimer Sodium BUN Creatinine Glucose POC Glucose (mg/dL) Plasma Lactic Acid Payam 4.1 H* 2.7 H* 3.6 H* AST ALT 12/14/22 12/14/22 12/14/22 21:39 21:55 22:58 RBC Hgb Hct Plt Count APTT D-Dimer Sodium BUN Creatinine Glucose POC Glucose (mg/dL) 543 H 515 H Plasma Lactic Acid Payam 6.1 H* AST ALT 12/14/22 23:44 RBC Hgb Hct Plt Count APTT D-Dimer Sodium BUN Creatinine Glucose POC Glucose (mg/dL) 485 H Plasma Lactic Acid Payam AST ALT - Diagnostic Findings Chest x-ray: image reviewed Assessment and Plan Assessment: Dyspnea, currently under investigation, possibly related to mild COPD exacerbation. Chest x-ray on arrival shows no focal consolidation or evidence of pneumonia. Negative for influenza, RSV, COVID-19. Elevated d-dimer, VQ scan shows very low probability of pulmonary embolism Chronic obstructive pulmonary disease Lactic acidemia, exact etiology is not clear, could be monitored. Acute kidney injury, creatinine 1.2 Diabetes mellitus type 2 Essential hypertension Hyperlipidemia Coronary artery disease Hypothyroidism GERD without esophagitis Fibromyalgia Plan: Patient's medications, labs, chest x-ray reviewed On room air Patient was started on bronchodilators, symbicort inhaler, and IV solu-Medrol. Patient's lactic acidosis was treated with an additional 500 ML normal saline bolus. I also held the patient's metformin Continue empiric Rocephin and check procalcitonin level Blood glucose control per admitting. Patient appears non-toxic and was admitted to the observation unit Recommend the patient follows up in the office for full PFT on discharge. We will continue to follow I have personally seen and examined the patient, performed the documentation and the assessment and plan as written. Number of minutes spent on the visit:20 Joint evaluation that was done along with the nurse practitioner. The patient is having some difficulties in breathing. There is no clear indication for an underlying pneumonia or pulmonary embolism. The patient was started on empiric antibiotic coverage with IV Rocephin. The patient was also given a lower dose of steroids and the patient is currently on 20 mg of prednisone as the patient is experiencing side effects systemic steroids mainly increased anxiety and panic. The lactic acid level is elevated. Awaiting pro-calcitonin level. Awaiting blood cultures. We'll continue monitoring the lactic acid level. Awaiting a urinalysis. We'll continue to follow. Evaluation was done in more than 30 minutes. Time with Patient: Greater than 30
[2022-12-15] MEDS: IPRATROPIUM-ALBUTEROL 3 ML NEB INHALATION SCH ×4 (08:10→20:02)
[2022-12-15] MEDS: SYMBICORT 160-4.5 MCG INHALER INHALATION SCH ×2 (08:10→20:02)
[2022-12-15] MEDS: [UNRECOGNIZED DRUG - OTHER] PO SCH (08:22)
[2022-12-15] MEDS: PANTOPRAZOLE 40 MG TABLET PO SCH (08:24)
[2022-12-15] MEDS: METOPROLOL TARTRATE 50 MG TAB PO SCH ×2 (08:24→20:31)
[2022-12-15] MEDS: CHOLECALCIFEROL 125 MCG (5000 IU) TABLET PO SCH (08:24)
[2022-12-15] MEDS: FLUTICASONE 50MCG/SPRAY NASAL 16GM EA NOSTRIL SCH (08:24)
[2022-12-15] MEDS: MAGNESIUM OXIDE 400 MG TAB PO SCH (08:24)
[2022-12-15] MEDS: MULTIVITAMINS, THERA 1 EACH TAB PO SCH (08:24)
--- NOTE | 2022-12-15 10:07 | P.HPIM ---
History of Present Illness H&P Date: 12/14/22 Amina Martell, is a 72-year-old female who presented to [facility] emergency room with a chief complaint of worsening shortness of breath, symptoms started 1 week ago and has been increasing. She was evaluated in the emergency room vital examination on presentation revealed a temperature of 98.6 pulse 77 respiration 18 blood pressure 143/79 pulse ox 97% on room air Laboratory data revealed a white blood count of 7.3 hemoglobin 10.7 platelet count 129 d-dimer was elevated at 4.77 lactic acid was elevated at 6.1 liver enzymes were elevated at AST 53 and ALT 52 Testing in the emergency room revealed chest x-ray done in the emergency room revealed no acute process Patient was admitted to medical floor for further evaluation and treatment Past medical history is significant for history of hypertension history of hyperlipidemia, history of diabetes mellitus type 2, history of hypothyroidism, history of morbid obesity, history of COPD, history of coronary artery disease, history of gastroesophageal reflux disease, history of fibromyalgia, and previous history of smoking., On review of systems There is no fever or chills no headache or dizziness no chest pain she has occasional cough no palpitation no nausea or vomiting no abdominal pain no diarrhea no blood in the stools no burning with urination no frequency or urgency and no hematuria Past Medical History Past Medical History: COPD, Diabetes Mellitus, Fibromyalgia, GERD/Reflux, Hyperlipidemia, Hypertension, Liver Disease, Osteoarthritis (OA), Rheumatoid Arthritis (RA), Skin Disorder, Thyroid Disorder Additional Past Medical History / Comment(s): abdominal cramping, hx migraines, SOB with chest pain, heart murmer, hx ulcer, hiatal hernia, IBS, fatty liver, hx gout, psoriasis History of Any Multi-Drug Resistant Organisms: None Reported Past Surgical History: Appendectomy, Heart Catheterization, Joint Replacement, Tonsillectomy Additional Past Surgical History / Comment(s): blocked tear duct left eye, dinh cataracts , rt knee replacement Past Anesthesia/Blood Transfusion Reactions: No Reported Reaction Past Psychological History: Anxiety Smoking Status: Former smoker Past Alcohol Use History: None Reported Past Drug Use History: None Reported - Past Family History Mother Family Medical History: Cancer Additional Family Medical History / Comment(s): lung Medications and Allergies Home Medications Medication Instructions Recorded Confirmed Type Albuterol Inhaler [Ventolin Hfa 1 - 2 puff INHALATION RT-Q6H PRN 07/07/16 12/14/22 History Inhaler] Metoprolol Tartrate [Lopressor] 50 mg PO BID 07/07/16 12/14/22 History Multivitamins, Thera [Multivitamin 1 tab PO DAILY 07/07/16 12/14/22 History (formulary)] metFORMIN HCL [Glucophage] 1,000 mg PO BID 07/07/16 12/14/22 History ALPRAZolam [Xanax] 0.125 - 0.25 mg PO DAILY PRN 05/14/20 12/14/22 History Amitriptyline HCl [Elavil] 150 mg PO HS 05/14/20 12/14/22 History Fluticasone Nasal [place] [Flonase 1 spray EA NOSTRIL DAILY 05/14/20 12/14/22 History Nasal [place]] Levothyroxine Sodium [Synthroid] 75 mcg PO DAILY 05/14/20 12/14/22 History Omeprazole [PriLOSEC] 40 mg PO DAILY 05/14/20 12/14/22 History Evolocumab [Repatha Sureclick] 140 mg SQ Q30D 05/26/22 12/14/22 History Cholecalciferol [Vitamin D3 (125 125 mcg PO DAILY 12/14/22 12/14/22 History Mcg = 5000 Iu)] Escitalopram [Lexapro] 10 mg PO DAILY 12/14/22 12/14/22 History Óscar-Plex Supplement 1 tab PO DAILY 12/14/22 12/14/22 History Magnesium 250 mg PO DAILY 12/14/22 12/14/22 History predniSONE See Taper PO DIRECTED 12/14/22 12/14/22 History Allergies Allergy/AdvReac Type Severity Reaction Status Date / Time erythromycin base Allergy Severe burning Verified 12/14/22 20:02 pain to esophagus/stomach Sulfa (Sulfonamide Allergy Unknown Verified 12/14/22 20:02 Antibiotics) hydrocodone [From Vicodin] AdvReac Severe Vomiting Verified 12/14/22 20:02 Penicillins AdvReac Diarrhea Verified 12/14/22 20:02 Physical Exam Vitals: Vital Signs Temp Pulse Resp BP Pulse Ox 12/14/22 17:22 81 18 12/14/22 17:11 79 18 12/14/22 14:57 73 18 162/87 97 12/14/22 11:53 71 22 116/66 98 12/14/22 11:41 98.6 F 77 18 143/79 97 Intake and Output 12/14/22 12/14/22 12/14/22 06:59 14:59 22:59 Other: Weight 88.904 kg In general patient is alert and oriented x 3 in no distress HEENT head normocephalic and atraumatic Neck is supple no JVD no goiter no lymphadenopathy no carotid bruit Chest examination is clear to auscultation no crackles no wheezing Cardiac exam reveals regular heart sounds S1 and S2 no gallops no murmurs Abdomen is soft nontender no organomegaly with normal bowel sounds Extremity exam reveals no edema no cyanosis or clubbing Neurological examination reveals no gross focal deficits Results CBC & Chem 7: 12/14/22 12:04 12/14/22 12:04 Labs: Abnormal Lab Results - Last 24 Hours (Table) 12/14/22 12/14/22 12/14/22 Range/Units 12:04 12:04 12:04 RBC 3.63 L (3.80-5.40) m/uL Hgb 10.7 L (11.4-16.0) gm/dL Hct 32.4 L (34.0-46.0) % Plt Count 129 L (150-450) k/uL APTT 21.2 L (22.0-30.0) sec D-Dimer 4.77 H (<0.60) mg/L FEU Sodium 136 L (137-145) mmol/L BUN 19 H (7-17) mg/dL Creatinine 1.20 H (0.52-1.04) mg/dL Glucose 216 H (74-99) mg/dL Plasma Lactic Acid Payam (0.7-2.0) mmol/L AST 53 H (14-36) U/L ALT 52 H (4-34) U/L 12/14/22 12/14/22 Range/Units 12:04 15:09 RBC (3.80-5.40) m/uL Hgb (11.4-16.0) gm/dL Hct (34.0-46.0) % Plt Count (150-450) k/uL APTT (22.0-30.0) sec D-Dimer (<0.60) mg/L FEU Sodium (137-145) mmol/L BUN (7-17) mg/dL Creatinine (0.52-1.04) mg/dL Glucose (74-99) mg/dL Plasma Lactic Acid Payam 4.1 H* 2.7 H* (0.7-2.0) mmol/L AST (14-36) U/L ALT (4-34) U/L Assessment and Plan Plan: Shortness of breath, likely related to acute exacerbation of chronic obstructive pulmonary disease Elevated d-dimer, VQ scan was low probability for pulmonary embolism Chronic kidney disease Elevated lactic acid Underlying history of hypertension Underlying history of hyperlipidemia Underlying history of coronary artery disease Underlying history of hypothyroidism Underlying history of diabetes mellitus type 2 Underlying history of gastroesophageal reflux disease Underlying history of fibromyalgia At this time patient was seen and examined on the telemetry floor Home medication reviewed and 3 ordered Patient was started on IV fluid boluses for elevated lactic acid She was started on IV ceftriaxone empirically She was also started on IV Solu-Medrol and inhaled bronchodilator Pulmonary consultation requested Will follow closely
[2022-12-15 10:35] LABS: African American GFR (CKD) 58 (>60 ml/min/1.73 sqM); Anion Gap 13 mmol/L; Blood Urea Nitrogen 22 mg/dL (7-17); Calcium 8.6 mg/dL (8.4-10.2); Carbon Dioxide 17 mmol/L (22-30); Chloride 104 mmol/L (98-107); Glucose 321 mg/dL (74-99); Non-African American GFR(CKD) 51 (>60 ml/min/1.73 sqM); Potassium 4.6 mmol/L (3.5-5.1); Sodium 134 mmol/L (137-145)
[2022-12-15 12:19] LABS: Glucose,Whole Blood 489 mg/dL (70-110)
--- NOTE | 2022-12-15 12:43 | P.PN ---
Subjective Progress Note Date: 12/15/22 Amina Martell, is a 72-year-old female who presented to [facility] emergency room with a chief complaint of worsening shortness of breath, symptoms started 1 week ago and has been increasing. She was evaluated in the emergency room vital examination on presentation revealed a temperature of 98.6 pulse 77 respiration 18 blood pressure 143/79 pulse ox 97% on room air Laboratory data revealed a white blood count of 7.3 hemoglobin 10.7 platelet count 129 d-dimer was elevated at 4.77 lactic acid was elevated at 6.1 liver enzymes were elevated at AST 53 and ALT 52 Testing in the emergency room revealed chest x-ray done in the emergency room revealed no acute process Patient was admitted to medical floor for further evaluation and treatment Past medical history is significant for history of hypertension history of hyperlipidemia, history of diabetes mellitus type 2, history of hypothyroidism, history of morbid obesity, history of COPD, history of coronary artery disease, history of gastroesophageal reflux disease, history of fibromyalgia, and previous history of smoking., On review of systems There is no fever or chills no headache or dizziness no chest pain she has occasional cough no palpitation no nausea or vomiting no abdominal pain no diarrhea no blood in the stools no burning with urination no frequency or urgency and no hematuria On 12/15/2022 patient is alert and oriented 3. Patient remains on IV steroids. Patient reports improvement with shortness of breath. Lactic acid improving. Pulmonary and infectious he services have been consulted and awaiting input. Current vital signs temp 97.5, heart rate 79, blood pressure 153/84 and pulse ox of 97% on room air. Patient denies chest pain or shortness of breath. Patient denies nausea vomiting or diarrhea. Patient denies any urinary burning or frequency Objective - Vital Signs Vital signs: Vital Signs Temp 97.5 F L 12/15/22 07:00 Pulse 80 12/15/22 08:22 Resp 20 12/15/22 07:00 BP 153/84 12/15/22 07:00 Pulse Ox 97 12/15/22 07:00 FiO2 Intake & Output 12/14/22 12/15/22 12/15/22 18:59 06:59 18:59 Intake Total 591 Balance 591 Weight 88.904 kg Intake: Oral 591 Other: Voiding Method Toilet Toilet # Voids 1 - Exam In general patient is alert and oriented x 3 in no distress HEENT head normocephalic and atraumatic Neck is supple no JVD no goiter no lymphadenopathy no carotid bruit Chest examination is clear to auscultation no crackles no wheezing Cardiac exam reveals regular heart sounds S1 and S2 no gallops no murmurs Abdomen is soft nontender no organomegaly with normal bowel sounds Extremity exam reveals no edema no cyanosis or clubbing Neurological examination reveals no gross focal deficits - Labs CBC & Chem 7: 12/14/22 12:04 12/15/22 09:04 Labs: Abnormal Lab Results - Last 24 Hours (Table) 12/14/22 12/14/22 12/14/22 Range/Units 12:04 12:04 12:04 RBC 3.63 L (3.80-5.40) m/uL Hgb 10.7 L (11.4-16.0) gm/dL Hct 32.4 L (34.0-46.0) % Plt Count 129 L (150-450) k/uL APTT 21.2 L (22.0-30.0) sec D-Dimer 4.77 H (<0.60) mg/L FEU Sodium 136 L (137-145) mmol/L BUN 19 H (7-17) mg/dL Creatinine 1.20 H (0.52-1.04) mg/dL Glucose 216 H (74-99) mg/dL POC Glucose (mg/dL) (70-110) mg/dL Plasma Lactic Acid Payam (0.7-2.0) mmol/L AST 53 H (14-36) U/L ALT 52 H (4-34) U/L 12/14/22 12/14/22 12/14/22 Range/Units 12:04 15:09 18:45 RBC (3.80-5.40) m/uL Hgb (11.4-16.0) gm/dL Hct (34.0-46.0) % Plt Count (150-450) k/uL APTT (22.0-30.0) sec D-Dimer (<0.60) mg/L FEU Sodium (137-145) mmol/L BUN (7-17) mg/dL Creatinine (0.52-1.04) mg/dL Glucose (74-99) mg/dL POC Glucose (mg/dL) (70-110) mg/dL Plasma Lactic Acid Payam 4.1 H* 2.7 H* 3.6 H* (0.7-2.0) mmol/L AST (14-36) U/L ALT (4-34) U/L 12/14/22 12/14/22 12/14/22 Range/Units 21:39 21:55 22:58 RBC (3.80-5.40) m/uL Hgb (11.4-16.0) gm/dL Hct (34.0-46.0) % Plt Count (150-450) k/uL APTT (22.0-30.0) sec D-Dimer (<0.60) mg/L FEU Sodium (137-145) mmol/L BUN (7-17) mg/dL Creatinine (0.52-1.04) mg/dL Glucose (74-99) mg/dL POC Glucose (mg/dL) 543 H 515 H (70-110) mg/dL Plasma Lactic Acid Payam 6.1 H* (0.7-2.0) mmol/L AST (14-36) U/L ALT (4-34) U/L 12/14/22 12/15/22 12/15/22 Range/Units 23:44 05:18 06:03 RBC (3.80-5.40) m/uL Hgb (11.4-16.0) gm/dL Hct (34.0-46.0) % Plt Count (150-450) k/uL APTT (22.0-30.0) sec D-Dimer (<0.60) mg/L FEU Sodium (137-145) mmol/L BUN (7-17) mg/dL Creatinine (0.52-1.04) mg/dL Glucose (74-99) mg/dL POC Glucose (mg/dL) 485 H 265 H (70-110) mg/dL Plasma Lactic Acid Payam 2.5 H* (0.7-2.0) mmol/L AST (14-36) U/L ALT (4-34) U/L Assessment and Plan Plan: Shortness of breath, likely related to acute exacerbation of chronic obstructive pulmonary disease Elevated d-dimer, VQ scan was low probability for pulmonary embolism Chronic kidney disease Elevated lactic acid Underlying history of hypertension Underlying history of hyperlipidemia Underlying history of coronary artery disease Underlying history of hypothyroidism Underlying history of diabetes mellitus type 2 Underlying history of gastroesophageal reflux disease Underlying history of fibromyalgia At this time patient was seen and examined on the telemetry floor Home medication reviewed and 3 ordered Patient was started on IV fluid boluses for elevated lactic acid She was started on IV ceftriaxone empirically She was also started on IV Solu-Medrol and inhaled bronchodilator Pulmonary consultation requested Infectious diseae service is consulted Will follow closely
[2022-12-15 17:32] LABS: Glucose,Whole Blood 261 mg/dL (70-110)
--- NOTE | 2022-12-15 19:46 | US ---
EXAMINATION TYPE: US venous doppler duplex LE DATE OF EXAM: 12/15/2022 7:31 PM COMPARISON: NONE CLINICAL INDICATION: Female, 72 years old with history of D dimer elevated; elevated d dimer SIDE PERFORMED: Bilateral TECHNIQUE: The lower extremity deep venous system is examined utilizing real time linear array sonog bal with graded compression, doppler sonography and color-flow sonography. VESSELS IMAGED: Common Femoral Vein Deep Femoral Vein Greater Saphenous Vein * Femoral Vein Popliteal Vein Small Saphenous Vein * Proximal Calf Veins (* superficial vessels) Right Leg: Negative for DVT Left Leg: Negative for DVT IMPRESSION: Grayscale, color doppler, spectral doppler imaging performed of the deep veins of the lo wer extremities. There is normal flow, compressibility, vascular waveforms.
[2022-12-15] MEDS: AMITRIPTYLINE HCL 50 MG TAB PO SCH (20:31)
[2022-12-15] MEDS ORDERED: ACETAMINOPHEN TAB 325 MG TAB PO PRN (20:43)
[2022-12-15 20:46] LABS: Glucose,Whole Blood 247 mg/dL (70-110)
[2022-12-15] MEDS: INSULIN DETEMIR (LEVEMIR) 100 UNIT/ML SYR SQ SCH (21:26)
[2022-12-15] MEDS ORDERED: INSULIN ASPART (NovoLOG) 100 UNIT/ML VIAL SQ SCH (21:55)
--- NOTE | 2022-12-15 22:46 | P.CONS ---
History of Present Illness - Reason for Consult Consult date: 12/15/22 - History of Present Illness Patient is a 72-year-old female with a past medical history significant for COPD diabetes mellitus fibromyalgia reflux hyperlipidemia and liver disease presenting to the hospital yesterday from home for evaluation of increasing shortness of breath the patient breathing has been getting worse over the past few months however really worse since Tuesday patient has been using inhaler as needed and apparently patient has been on chronic steroids after a COVID-19 infection patient symptom remains to be increasing shortness of breath minimal exertion even at rest the patient denies having any chest pain she did have very minimal minimal cough and no sputum production denies having any nausea or vomiting no abdominal pain no diarrhea no urinary symptoms on presentation to the hospital patient was afebrile and no fever has been recorded subsequently patient did not have significant hypoxemia need for supplemental oxygen patient on presentation to hospital did have normal white count with no left shift D-dimer was elevated 4.77 did have mild elevated BUN and creatinine patient noticed to have elevated lactic acid of 4.1 which is up to 6.1 came down to 2.5 but is up to 5 today that has prompted this infectious disease consultation lives and mildly elevated patient did tested negative for COVID RSV and influenza patient did have VQ scan which was low probability for PE patient currently being treated with the empiric antibiotics in addition to the steroids infectious was consulted for further management because of her elevated lactic acid Past Medical History Past Medical History: COPD, Diabetes Mellitus, Fibromyalgia, GERD/Reflux, Hyperlipidemia, Hypertension, Liver Disease, Osteoarthritis (OA), Rheumatoid Arthritis (RA), Skin Disorder, Thyroid Disorder Additional Past Medical History / Comment(s): abdominal cramping, hx migraines, SOB with chest pain, heart murmer, hx ulcer, hiatal hernia, IBS, fatty liver, hx gout, psoriasis History of Any Multi-Drug Resistant Organisms: None Reported Past Surgical History: Appendectomy, Heart Catheterization, Joint Replacement, Tonsillectomy Additional Past Surgical History / Comment(s): blocked tear duct left eye, dinh cataracts , rt knee replacement Past Anesthesia/Blood Transfusion Reactions: No Reported Reaction Past Psychological History: Anxiety Smoking Status: Former smoker Past Alcohol Use History: None Reported Past Drug Use History: None Reported - Past Family History Mother Family Medical History: Cancer Additional Family Medical History / Comment(s): lung Medications and Allergies Home Medications Medication Instructions Recorded Confirmed Type Albuterol Inhaler [Ventolin Hfa 1 - 2 puff INHALATION RT-Q6H PRN 07/07/16 12/14/22 History Inhaler] Metoprolol Tartrate [Lopressor] 50 mg PO BID 07/07/16 12/14/22 History Multivitamins, Thera [Multivitamin 1 tab PO DAILY 07/07/16 12/14/22 History (formulary)] metFORMIN HCL [Glucophage] 1,000 mg PO BID 07/07/16 12/14/22 History ALPRAZolam [Xanax] 0.125 - 0.25 mg PO DAILY PRN 05/14/20 12/14/22 History Amitriptyline HCl [Elavil] 150 mg PO HS 05/14/20 12/14/22 History Fluticasone Nasal [place] [Flonase 1 spray EA NOSTRIL DAILY 05/14/20 12/14/22 History Nasal [place]] Levothyroxine Sodium [Synthroid] 75 mcg PO DAILY 05/14/20 12/14/22 History Omeprazole [PriLOSEC] 40 mg PO DAILY 05/14/20 12/14/22 History Evolocumab [Repatha Sureclick] 140 mg SQ Q30D 05/26/22 12/14/22 History Cholecalciferol [Vitamin D3 (125 125 mcg PO DAILY 12/14/22 12/14/22 History Mcg = 5000 Iu)] Escitalopram [Lexapro] 10 mg PO DAILY 12/14/22 12/14/22 History Óscar-Plex Supplement 1 tab PO DAILY 12/14/22 12/14/22 History Magnesium 250 mg PO DAILY 12/14/22 12/14/22 History predniSONE See Taper PO DIRECTED 12/14/22 12/14/22 History Allergies Allergy/AdvReac Type Severity Reaction Status Date / Time erythromycin base Allergy Severe burning Verified 12/14/22 20:02 pain to esophagus/stomach Sulfa (Sulfonamide Allergy Unknown Verified 12/14/22 20:02 Antibiotics) hydrocodone [From Vicodin] AdvReac Severe Vomiting Verified 12/14/22 20:02 Penicillins AdvReac Diarrhea Verified 12/14/22 20:02 Physical Exam Vitals: Vital Signs Temp Pulse Pulse Resp BP BP Pulse Ox 12/15/22 08:22 80 12/15/22 08:12 79 12/15/22 07:00 97.5 F L 82 20 153/84 97 12/15/22 03:01 97.3 F L 73 18 151/85 96 12/15/22 02:00 82 12/14/22 23:43 68 153/85 97 12/14/22 22:43 17 12/14/22 22:05 93 19 186/75 94 L 12/14/22 21:16 97.6 F 102 H 23 190/113 95 12/14/22 17:22 81 18 12/14/22 17:11 79 18 12/14/22 14:57 73 18 162/87 97 Intake and Output 12/14/22 12/15/22 12/15/22 22:59 06:59 14:59 Intake Total 591 Balance 591 Intake: Oral 591 Other: Voiding Method Toilet Toilet # Voids 1 Results CBC & Chem 7: 12/14/22 12:04 12/15/22 09:04 Labs: Abnormal Lab Results - Last 24 Hours (Table) 12/14/22 12/14/22 12/14/22 Range/Units 12:04 12:04 12:04 RBC 3.63 L (3.80-5.40) m/uL Hgb 10.7 L (11.4-16.0) gm/dL Hct 32.4 L (34.0-46.0) % Plt Count 129 L (150-450) k/uL APTT 21.2 L (22.0-30.0) sec D-Dimer 4.77 H (<0.60) mg/L FEU Sodium 136 L (137-145) mmol/L Carbon Dioxide (22-30) mmol/L BUN 19 H (7-17) mg/dL Creatinine 1.20 H (0.52-1.04) mg/dL Glucose 216 H (74-99) mg/dL POC Glucose (mg/dL) (70-110) mg/dL Plasma Lactic Acid Payam (0.7-2.0) mmol/L AST 53 H (14-36) U/L ALT 52 H (4-34) U/L 12/14/22 12/14/22 12/14/22 Range/Units 12:04 15:09 18:45 RBC (3.80-5.40) m/uL Hgb (11.4-16.0) gm/dL Hct (34.0-46.0) % Plt Count (150-450) k/uL APTT (22.0-30.0) sec D-Dimer (<0.60) mg/L FEU Sodium (137-145) mmol/L Carbon Dioxide (22-30) mmol/L BUN (7-17) mg/dL Creatinine (0.52-1.04) mg/dL Glucose (74-99) mg/dL POC Glucose (mg/dL) (70-110) mg/dL Plasma Lactic Acid Payam 4.1 H* 2.7 H* 3.6 H* (0.7-2.0) mmol/L AST (14-36) U/L ALT (4-34) U/L 12/14/22 12/14/22 12/14/22 Range/Units 21:39 21:55 22:58 RBC (3.80-5.40) m/uL Hgb (11.4-16.0) gm/dL Hct (34.0-46.0) % Plt Count (150-450) k/uL APTT (22.0-30.0) sec D-Dimer (<0.60) mg/L FEU Sodium (137-145) mmol/L Carbon Dioxide (22-30) mmol/L BUN (7-17) mg/dL Creatinine (0.52-1.04) mg/dL Glucose (74-99) mg/dL POC Glucose (mg/dL) 543 H 515 H (70-110) mg/dL Plasma Lactic Acid Payam 6.1 H* (0.7-2.0) mmol/L AST (14-36) U/L ALT (4-34) U/L 12/14/22 12/15/22 12/15/22 Range/Units 23:44 05:18 06:03 RBC (3.80-5.40) m/uL Hgb (11.4-16.0) gm/dL Hct (34.0-46.0) % Plt Count (150-450) k/uL APTT (22.0-30.0) sec D-Dimer (<0.60) mg/L FEU Sodium (137-145) mmol/L Carbon Dioxide (22-30) mmol/L BUN (7-17) mg/dL Creatinine (0.52-1.04) mg/dL Glucose (74-99) mg/dL POC Glucose (mg/dL) 485 H 265 H (70-110) mg/dL Plasma Lactic Acid Payam 2.5 H* (0.7-2.0) mmol/L AST (14-36) U/L ALT (4-34) U/L 12/15/22 12/15/22 Range/Units 09:04 09:04 RBC (3.80-5.40) m/uL Hgb (11.4-16.0) gm/dL Hct (34.0-46.0) % Plt Count (150-450) k/uL APTT (22.0-30.0) sec D-Dimer (<0.60) mg/L FEU Sodium 134 L (137-145) mmol/L Carbon Dioxide 17 L (22-30) mmol/L BUN 22 H (7-17) mg/dL Creatinine 1.10 H (0.52-1.04) mg/dL Glucose 321 H (74-99) mg/dL POC Glucose (mg/dL) (70-110) mg/dL Plasma Lactic Acid Payam 3.7 H* (0.7-2.0) mmol/L AST (14-36) U/L ALT (4-34) U/L Assessment and Plan Plan: 1patient with elevated lactic acid more like related to underlying bronchoconstriction from COPD exacerbation and clinical bronchitis, clinically he does not look septic in this patient with no fever or elevated white count patient abdominal soft clinical examination and no other focus of infection 2-we will wait for the procalcitonin and check a CRP blood cultures will be followed 3-May continue empiric Rocephin while waiting for the work-up to be completed We will follow on clinical condition and cultures to further adjust medication if needed Thank you for this consultation we will follow the patient along with you Time with Patient: Greater than 30
[2022-12-16 06:05] LABS: Glucose,Whole Blood 153 mg/dL (70-110)
[2022-12-16] MEDS: LEVOTHYROXINE 75 MCG TAB PO SCH (06:18)
[2022-12-16] MEDS: INSULIN ASPART (NovoLOG) 100 UNIT/ML VIAL SQ SCH ×2 (06:25→13:25)
[2022-12-16 07:43] VITALS: BP 136/92; PULSE 75; RESP 20; TEMP 97.3
[2022-12-16] MEDS: IPRATROPIUM-ALBUTEROL 3 ML NEB INHALATION SCH ×3 (08:15→15:12)
[2022-12-16] MEDS: SYMBICORT 160-4.5 MCG INHALER INHALATION SCH (08:15)
[2022-12-16] MEDS: CHOLECALCIFEROL 125 MCG (5000 IU) TABLET PO SCH (08:23)
[2022-12-16] MEDS: MAGNESIUM OXIDE 400 MG TAB PO SCH (08:23)
[2022-12-16] MEDS: METOPROLOL TARTRATE 50 MG TAB PO SCH (08:23)
[2022-12-16] MEDS: PANTOPRAZOLE 40 MG TABLET PO SCH (08:23)
[2022-12-16] MEDS: MULTIVITAMINS, THERA 1 EACH TAB PO SCH (08:23)
[2022-12-16] MEDS: FLUTICASONE 50MCG/SPRAY NASAL 16GM EA NOSTRIL SCH (08:24)
[2022-12-16] MEDS: [UNRECOGNIZED DRUG - OTHER] PO SCH (08:24)
[2022-12-16] MEDS ORDERED: predniSONE 20 MG TAB PO SCH (09:00)
[2022-12-16 11:10] LABS: ALT 66 U/L (8-44); AST 33 U/L (13-35); Albumin 3.7 d/dL (3.8-4.9); Albumin/Globulin Ratio 1.68 Ratio (1.60-3.17); Alkaline Phosphatase 99 U/L (41-126); BUN/Creat Ratio 18.25 Ratio (12.00-20.00); Blood Urea Nitrogen 21.9 mg/dL (9.0-27.0); C Reactive Protein <0.30 mg/dL (0.00-0.80); Calcium 8.7 mg/dL (8.7-10.3); Carbon Dioxide 24.3 mmol/L (21.6-31.8); Chloride 107 mmol/L (96-109); Globulin 2.2 d/dL (1.6-3.3); Glucose 162 mg/dL (70-110); Potassium 4.2 mmol/L (3.5-5.5); Sodium 142 mmol/L (135-145); Total Bilirubin 0.2 mg/dL (0.3-1.2); Total Protein 5.9 d/dL (6.2-8.2)
[2022-12-16 11:12] LABS: Basophils # (A) 0.01 X 10*3/uL (0.00-0.10); Basophils % (A) 0.1 %; Eosinophils # (A) 0.04 X 10*3/uL (0.04-0.35); Eosinophils % (A) 0.6 %; HCT 30.5 % (37.2-46.3); HGB 9.7 d/dL (12.0-15.0); Lymphocytes # (A) 2.22 X 10*3/uL (0.90-5.00); Lymphocytes % (A) 32.9 %; MCHC 31.8 d/dL (32.0-37.0); MCV 91.3 FL (80.0-97.0); Mean Platelet Volume 10.9 FL (9.5-12.2); Monocytes # (A) 0.25 X 10*3/uL (0.20-1.00); Monocytes % (A) 3.7 %; NRBC Per 100 WBC 0 X 10*3/uL (0.00-0.01); Neutrophils # (A) 4.16 X 10*3/uL (1.80-7.70); Neutrophils % (A) 61.8 %; Platelet Count 120 X 10*3/uL (140-440); RBC 3.34 X 10*6/uL (4.10-5.20); RDW 15.5 % (11.5-14.5); WBC 6.74 X 10*3/uL (4.50-10.00)
[2022-12-16 12:34] LABS: Glucose,Whole Blood 164 mg/dL (70-110)
--- NOTE | 2022-12-16 14:40 | P.DS ---
Providers Date of admission: 12/14/22 13:39 Expected date of discharge: 12/16/22 Attending physician: Teddy Goodman Consults: 12/14/22 13:47 Consult Physician Routine Consulting Provider: Yudi Saldaña Consult Reason/Comments: dyspnea, elevated dimer Do you want consulting provider notified?: Yes 12/15/22 05:38 Consult Physician Routine Consulting Provider: Daniela Mott Consult Reason/Comments: elevated lactic acid level Do you want consulting provider notified?: Yes Primary care physician: Marquita Delgadillo [facility] Course: Diagnosis on discharge: Shortness of breath, likely related to acute exacerbation of chronic obstructive pulmonary disease Elevated d-dimer, VQ scan was low probability for pulmonary embolism Chronic kidney disease Elevated lactic acid Underlying history of hypertension Underlying history of hyperlipidemia Underlying history of coronary artery disease Underlying history of hypothyroidism Underlying history of diabetes mellitus type 2 Underlying history of gastroesophageal reflux disease Underlying history of fibromyalgia Hospital course: Amina Martell, is a 72-year-old female who presented to [facility] emergency room with a chief complaint of worsening shortness of breath, symptoms started 1 week ago and has been increasing. She was evaluated in the emergency room vital examination on presentation revealed a temperature of 98.6 pulse 77 respiration 18 blood pressure 143/79 pulse ox 97% on room air Laboratory data revealed a white blood count of 7.3 hemoglobin 10.7 platelet count 129 d-dimer was elevated at 4.77 lactic acid was elevated at 6.1 liver enzymes were elevated at AST 53 and ALT 52 Testing in the emergency room revealed chest x-ray done in the emergency room revealed no acute process Patient was admitted to medical floor for further evaluation and treatment Past medical history is significant for history of hypertension history of hyperlipidemia, history of diabetes mellitus type 2, history of hypothyroidism, history of morbid obesity, history of COPD, history of coronary artery disease, history of gastroesophageal reflux disease, history of fibromyalgia, and previous history of smoking., On review of systems There is no fever or chills no headache or dizziness no chest pain she has occasional cough no palpitation no nausea or vomiting no abdominal pain no diarrhea no blood in the stools no burning with urination no frequency or urgency and no hematuria On 12/15/2022 patient is alert and oriented 3. Patient remains on IV steroids. Patient reports improvement with shortness of breath. Lactic acid improving. Pulmonary and infectious he services have been consulted and awaiting input. Current vital signs temp 97.5, heart rate 79, blood pressure 153/84 and pulse ox of 97% on room air. Patient denies chest pain or shortness of breath. Patient denies nausea vomiting or diarrhea. Patient denies any urinary burning or frequency On 12/16/2022 patient was seen and examined on the medical floor she is alert and oriented 3 in no apparent distress she reports significant improvement in her shortness of breath she denies any cough at this time, otherwise she denies any complaints there is no fever or chills no headache or dizziness no chest pain no palpitation no nausea or vomiting no abdominal pain no diarrhea no blood in the stools no burning with urination no frequency or urgency no hematuria. Case was discussed with Dr. Mott infectious disease, patient was maintained on IV Rocephin during this admission, pro-calcitonin level was slightly elevated at 0.15, he recommended a short course of Ceftin post discharge. Patient lactic acid was significantly elevated, metformin was discontinued during this admission, patient will follow up with her primary care physician in regard to assessment if patient needs different medication for diabetes. Patient will be discharged home today she was advised to follow-up with Dr. Delgadillo within one week. Patient Condition at Discharge: Stable Plan - Discharge Summary New Discharge Prescriptions: New cefUROXime axetiL [Cefuroxime] 500 mg PO BID 5 Days #10 tab Continue Multivitamins, Thera [Multivitamin (formulary)] 1 tab PO DAILY Metoprolol Tartrate [Lopressor] 50 mg PO BID Albuterol Inhaler [Ventolin Hfa Inhaler] 1 - 2 puff INHALATION RT-Q6H PRN PRN Reason: Shortness Of Breath Fluticasone Nasal [place] [Flonase Nasal [place]] 1 spray EA NOSTRIL DAILY Amitriptyline HCl [Elavil] 150 mg PO HS ALPRAZolam [Xanax] 0.125 - 0.25 mg PO DAILY PRN PRN Reason: Anxiety Omeprazole [PriLOSEC] 40 mg PO DAILY Levothyroxine Sodium [Synthroid] 75 mcg PO DAILY Escitalopram [Lexapro] 10 mg PO DAILY Cholecalciferol [Vitamin D3 (125 Mcg = 5000 Iu)] 125 mcg PO DAILY Evolocumab [Repatha Sureclick] 140 mg SQ Q30D predniSONE See Taper PO DIRECTED Magnesium 250 mg PO DAILY Óscar-Plex Supplement 1 tab PO DAILY Discontinued metFORMIN HCL [Glucophage] 1,000 mg PO BID Discharge Medication List Albuterol Inhaler [Ventolin Hfa Inhaler] 1 - 2 puff INHALATION RT-Q6H PRN 07/07/16 [History] Metoprolol Tartrate [Lopressor] 50 mg PO BID 07/07/16 [History] Multivitamins, Thera [Multivitamin (formulary)] 1 tab PO DAILY 07/07/16 [History] ALPRAZolam [Xanax] 0.125 - 0.25 mg PO DAILY PRN 05/14/20 [History] Amitriptyline HCl [Elavil] 150 mg PO HS 05/14/20 [History] Fluticasone Nasal [place] [Flonase Nasal [place]] 1 spray EA NOSTRIL DAILY 05/14/20 [History] Levothyroxine Sodium [Synthroid] 75 mcg PO DAILY 05/14/20 [History] Omeprazole [PriLOSEC] 40 mg PO DAILY 05/14/20 [History] Evolocumab [Repatha Sureclick] 140 mg SQ Q30D 05/26/22 [History] Cholecalciferol [Vitamin D3 (125 Mcg = 5000 Iu)] 125 mcg PO DAILY 12/14/22 [History] Escitalopram [Lexapro] 10 mg PO DAILY 12/14/22 [History] Óscar-Plex Supplement 1 tab PO DAILY 12/14/22 [History] Magnesium 250 mg PO DAILY 12/14/22 [History] predniSONE See Taper PO DIRECTED 12/14/22 [History] cefUROXime axetiL [Cefuroxime] 500 mg PO BID 5 Days #10 tab 12/16/22 [Rx] Follow up Appointment(s)/Referral(s): Marquita Delgadillo MD [Primary Care Provider] - 1-2 days
--- NOTE | 2022-12-16 16:27 | P.PN ---
Subjective Progress Note Date: 12/16/22 I am seeing this patient in new consultation today 12/15/2022 for progressive shortness of breath starting last Tuesday. Patient is a 80-year-old female with past medical history significant for COPD, CAD, hypertension, hyperlipidemia, diabetes mellitus type 2, obesity, hypothyroidism, GERD, fibromyalgia and is a remote ex-smoker. Patient follows with her PCP Marquita Delgadillo. 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 Patient presented to the emergency room yesterday afternoon complaining of worsening shortness of breath since Tuesday. She states that her shortness of breath is especially pronounced on exertion. It is associated with mild substernal chest pressure/tightness, which resolves with rest. She has been using her as needed albuterol inhaler more often. She was reportedly recently started on a new, unknown inhaler, by her PCP. Patient currently denies any fever, chills, cough, chest pain. Denies any heart palpitations, lower extremity swelling, orthopnea, syncope. She is currently sitting up in the recliner, on room air, in no acute distress. She is not very bronchospastic on auscultation. Chest x-ray on arrival showed no acute cardiopulmonary process or evidence of pneumonia. Her d-dimer was elevated, and a follow-up VQ scan showed very low probability of pulmonary embolus. CBC on arrival is unremarkable. BMP shows sodium 136, potassium 4.5, chloride 105, serum CO2 22, BUN 19, creatinine 1.2, glucose 216. LFTs are mildly elevated. Troponin negative x 1. ECG showed no acute ischemic changes. NT proBNP was low. Lactic acid levels have been trending up in her currently 6.1. Patient will be given an additional 500 ML normal saline bolus. Normal saline currently infusing at 75 ml/hr. She was started on empiric Rocephin. Blood cultures are pending. Negative for influenza, RSV, COVID-19. Patient appears nontoxic, and is admitted to observation unit. Vital signs are stable at this time. On today's evaluation of 12/17/2019, the patient's lungs are clear patient will specific complaints and she is on room air oxygen. No chest pain. No nausea or vomiting. No diarrhea Objective - Vital Signs Vital signs: Vital Signs Temp 97.3 F L 12/16/22 07:00 Pulse 75 12/16/22 07:00 Resp 20 12/16/22 07:00 BP 136/92 12/16/22 07:00 Pulse Ox 98 12/16/22 07:00 FiO2 Intake & Output 12/15/22 12/16/22 12/16/22 18:59 06:59 18:59 Intake Total 118 Balance 118 Intake: Oral 118 Other: Voiding Method Toilet Toilet # Voids 1 2 - Exam GENERAL EXAM: Alert, 72-year-old obese female, comfortable in no apparent distress. HEAD: Normocephalic and atraumatic EYES: Normal reaction of pupils, equal size. NOSE: Clear with pink turbinates. THROAT: No erythema or exudates. NECK: No masses, no JVD. CHEST: No chest wall deformity. LUNGS: Equal air entry with no crackles, wheeze, rhonchi or dullness. On room air. No conversational dyspnea or accessory muscle use.. CVS: S1 and S2 normal with no audible murmur, regular rhythm. No extra heart sounds ABDOMEN: Obese abdomen. No hepatosplenomegaly, active bowel sounds, no guarding or rigidity. SPINE: No scoliosis or deformity SKIN: No rashes CENTRAL NERVOUS SYSTEM: No focal deficits, tone is normal in all 4 extremities. EXTREMITIES: There is 1+ bilateral lower extremity edema. No clubbing, or cyanosis. Peripheral pulses are intact. - Labs CBC & Chem 7: 12/16/22 06:14 12/16/22 06:14 Labs: Abnormal Lab Results - Last 24 Hours (Table) 12/15/22 12/15/22 12/15/22 Range/Units 11:17 12:11 12:36 RBC (4.10-5.20) X 10*6/uL Hgb (12.0-15.0) d/dL Hct (37.2-46.3) % MCHC (32.0-37.0) d/dL RDW (11.5-14.5) % Plt Count (140-440) X 10*3/uL Est GFR (CKD-EPI) (>=60) Glucose (70-110) mg/dL POC Glucose (mg/dL) 489 H (70-110) mg/dL Plasma Lactic Acid Payam 5.0 H* (0.7-2.0) mmol/L Total Bilirubin (0.3-1.2) mg/dL ALT (8-44) U/L Total Protein (6.2-8.2) d/dL Albumin (3.8-4.9) d/dL Procalcitonin 0.15 H (0.02-0.09) ng/mL 12/15/22 12/15/22 12/15/22 Range/Units 15:38 17:25 20:45 RBC (4.10-5.20) X 10*6/uL Hgb (12.0-15.0) d/dL Hct (37.2-46.3) % MCHC (32.0-37.0) d/dL RDW (11.5-14.5) % Plt Count (140-440) X 10*3/uL Est GFR (CKD-EPI) (>=60) Glucose (70-110) mg/dL POC Glucose (mg/dL) 261 H 247 H (70-110) mg/dL Plasma Lactic Acid Payam 3.9 H* (0.7-2.0) mmol/L Total Bilirubin (0.3-1.2) mg/dL ALT (8-44) U/L Total Protein (6.2-8.2) d/dL Albumin (3.8-4.9) d/dL Procalcitonin (0.02-0.09) ng/mL 12/16/22 12/16/22 12/16/22 Range/Units 06:03 06:14 06:14 RBC 3.34 L (4.10-5.20) X 10*6/uL Hgb 9.7 L (12.0-15.0) d/dL Hct 30.5 L (37.2-46.3) % MCHC 31.8 L (32.0-37.0) d/dL RDW 15.5 H (11.5-14.5) % Plt Count 120 L (140-440) X 10*3/uL Est GFR (CKD-EPI) 48 L (>=60) Glucose 162 H (70-110) mg/dL POC Glucose (mg/dL) 153 H (70-110) mg/dL Plasma Lactic Acid Payam (0.7-2.0) mmol/L Total Bilirubin 0.2 L (0.3-1.2) mg/dL ALT 66 H (8-44) U/L Total Protein 5.9 L (6.2-8.2) d/dL Albumin 3.7 L (3.8-4.9) d/dL Procalcitonin (0.02-0.09) ng/mL Assessment and Plan Assessment: Dyspnea, currently under investigation, possibly related to mild COPD exacerbation. Chest x-ray on arrival shows no focal consolidation or evidence of pneumonia. Negative for influenza, RSV, COVID-19. Elevated d-dimer, VQ scan shows very low probability of pulmonary embolism Chronic obstructive pulmonary disease Lactic acidemia, exact etiology is not clear, could be monitored. Acute kidney injury, creatinine 1.2 Diabetes mellitus type 2 Essential hypertension Hyperlipidemia Coronary artery disease Hypothyroidism GERD without esophagitis Fibromyalgia Plan: May discharge the patient home today We'll complete a course of cefuroxime on outpatient basis On room air
== END 2022-12-16 15:25 | disposition home or self-care (01) ==
LOC: EC 11:39 → 6NMEDSUR 13:39
PROVIDERS: ADMIT Internal Medicine; ATTEND Internal Medicine
DX: J44.1 Chronic obstructive pulmonary disease with (acute) exacerbation (principal); R77.8 Other specified abnormalities of plasma proteins; R74.02 Elevation of levels of lactic acid dehydrogenase [LDH]; M79.7 Fibromyalgia; K21.9 Gastro-esophageal reflux disease without esophagitis; E78.5 Hyperlipidemia, unspecified; M06.9 Rheumatoid arthritis, unspecified; K58.9 Irritable bowel syndrome, unspecified; F41.9 Anxiety disorder, unspecified; I25.10 Atherosclerotic heart disease of native coronary artery without angina pectoris; E03.9 Hypothyroidism, unspecified; N17.9 Acute kidney failure, unspecified; I12.9 Hypertensive chronic kidney disease with stage 1 through stage 4 chronic kidney disease, or unspecified chronic kidney disease; N18.9 Chronic kidney disease, unspecified; E11.22 Type 2 diabetes mellitus with diabetic chronic kidney disease; E66.9 Obesity, unspecified; Z20.822 Contact with and (suspected) exposure to COVID-19; Z86.16 Personal history of COVID-19; Z87.891 Personal history of nicotine dependence; Z79.899 Other long term (current) drug therapy; Z79.84 Long term (current) use of oral hypoglycemic drugs; Z79.890 Hormone replacement therapy; Z79.51 Long term (current) use of inhaled steroids; Z79.82 Long term (current) use of aspirin; Z79.52 Long term (current) use of systemic steroids; Z88.0 Allergy status to penicillin; Z88.2 Allergy status to sulfonamides; Z88.5 Allergy status to narcotic agent
CPT/HCPCS: 96372 ×4; 96361 ×3; 96365; 96376; 96375; 99285; 36415; 94640; 93005; 85379; 83880; 80053 ×2; 80048; 83605 ×2; 84484 ×2; 85025 ×2; 85610; 85730; 86140; 87040; 87086; 83036; 84145; 87636; 71046; 93970; 78582; G0378 ×3; A9540; A9567; J2930 ×2; J0696; J1650

== ENCOUNTER → 2022-12-29 | Outpatient (CLI) | payer MEDICARE ==
[2022-12-29 20:09] LABS: ALT 38 U/L (8-44); AST 34 U/L (13-35); Alkaline Phosphatase 144 U/L (41-126); BUN/Creat Ratio 9.87 Ratio (12.00-20.00); Blood Urea Nitrogen 14.8 mg/dL (9.0-27.0); Calcium 9.9 mg/dL (8.7-10.3); Carbon Dioxide 24.7 mmol/L (21.6-31.8); Chloride 105 mmol/L (96-109); Globulin 2.5 d/dL (1.6-3.3); Glucose 181 mg/dL (70-110); Potassium 4.9 mmol/L (3.5-5.5); Sodium 142 mmol/L (135-145); Total Bilirubin 0.4 mg/dL (0.3-1.2); Total Protein 6.5 d/dL (6.2-8.2)
[2022-12-29 21:35] LABS: HCT 34.1 % (37.2-46.3); HGB 10.6 d/dL (12.0-15.0); MCH 28.6 pg (27.0-32.0); MCHC 31.1 d/dL (32.0-37.0); MCV 92.2 FL (80.0-97.0); Mean Platelet Volume 12.1 FL (9.5-12.2); NRBC Per 100 WBC 0.02 X 10*3/uL (0.00-0.01); Platelet Count 169 X 10*3/uL (140-440); RDW 15.5 % (11.5-14.5); WBC 7.69 X 10*3/uL (4.50-10.00)
== END | disposition home or self-care (01) ==
LOC: LABWHC1 11:46
PROVIDERS: ATTEND Registered Nurse
DX: N18.30 Chronic kidney disease, stage 3 unspecified (principal); R74.01 Elevation of levels of liver transaminase levels
CPT/HCPCS: 36415; 80053; 83605; 85027

== ENCOUNTER → 2023-01-11 | Outpatient (CLI) | payer MEDICARE ==
[2023-01-11 20:24] LABS: ALT 32 U/L (8-44); AST 36 U/L (13-35); Albumin 3.9 d/dL (3.8-4.9); Albumin/Globulin Ratio 1.62 Ratio (1.60-3.17); Alkaline Phosphatase 147 U/L (41-126); BUN/Creat Ratio 7.87 Ratio (12.00-20.00); Blood Urea Nitrogen 11.8 mg/dL (9.0-27.0); Calcium 9.3 mg/dL (8.7-10.3); Carbon Dioxide 25.3 mmol/L (21.6-31.8); Chloride 99 mmol/L (96-109); Globulin 2.4 d/dL (1.6-3.3); Glucose 431 mg/dL (70-110); Potassium 4.6 mmol/L (3.5-5.5); Sodium 135 mmol/L (135-145); Total Bilirubin 0.3 mg/dL (0.3-1.2); Total Protein 6.3 d/dL (6.2-8.2)
[2023-01-11 20:33] LABS: HCT 32.6 % (37.2-46.3); HGB 10.3 d/dL (12.0-15.0); MCH 28.7 pg (27.0-32.0); MCHC 31.6 d/dL (32.0-37.0); MCV 90.8 FL (80.0-97.0); Mean Platelet Volume 12.3 FL (9.5-12.2); NRBC Per 100 WBC 0 X 10*3/uL (0.00-0.01); Platelet Count 172 X 10*3/uL (140-440); RBC 3.59 X 10*6/uL (4.10-5.20); RDW 14.6 % (11.5-14.5); WBC 8.58 X 10*3/uL (4.50-10.00)
== END | disposition home or self-care (01) ==
LOC: LABWHC1 15:03
PROVIDERS: ATTEND Family Medicine
DX: E11.9 Type 2 diabetes mellitus without complications (principal); E87.29 Other acidosis; T50.905D Adverse effect of unspecified drugs, medicaments and biological substances, subsequent encounter
CPT/HCPCS: 36415; 80053; 83605; 85027

== ENCOUNTER → 2024-04-12 | Outpatient (CLI) | payer MEDICARE ==
--- NOTE | 2024-04-13 08:08 | MM ---
Reason for Exam: Screening (asymptomatic). Last mammogram was performed 2 year(s) and 4 month(s) ago. Patient History: Menarche at age 12. Patient has no children. Postmenopausal. Estrogen for 6 months. Patient used Hormonal Contraceptives for 5 years. Risk Values: Mariya 5 year model risk: 2.1%. NCI Lifetime model risk: 5.6%. Prior Study Comparison: 01/07/2016 Bilateral Screening Mammogram, [facility]. 04/11/2019 Bilateral Screening Mammogram, [facility]. 12/15/2021 Bilateral MG 3D screening mammo w/cad, [facility]. Tissue Density: There are scattered areas of fibroglandular density. Findings: Analyzed By CAD. Right breast: There is no suspicious group of microcalcifications or new suspicious mass. Left breast: There is no suspicious group of microcalcifications or new suspicious mass. Overall Assessment: Negative, BI-RAD 1 Management: Screening Mammogram of both breasts in [address] [facility] will attempt to contact patient to return for supplemental views and ultrasound if indicated. Patient should continue monthly self-breast exams. A clinical breast exam by your physician is recommended on an annual basis. This exam should not preclude additional follow-up of suspicious palpable abnormalities. Note on Mariya scores and lifetime risk: 1. A Mariya score greater than 3% is considered moderate risk. If this is the case, consider specialist referral to assess eligibility for a risk reducing agent. 2. If overall lifetime risk for the development of breast cancer is 20% or higher, the patient may qualify for future screening with alternating mammogram and breast MRI. [facility], , 04/13/2024 8:06 AM. Electronically signed and approved by: Sukhjinder Aldana DO
== END | disposition home or self-care (01) ==
LOC: RADMAMWWP 14:32
PROVIDERS: ATTEND Family Medicine
CPT/HCPCS: 77063; 77067

== ENCOUNTER → 2025-01-24 | Outpatient (CLI) | payer MEDICARE ==
[2025-01-24 19:07] LABS: Basophils # (A) 0.05 X 10*3/uL (0.00-0.10); Basophils % (A) 0.7 %; Eosinophils # (A) 0.14 X 10*3/uL (0.04-0.35); Eosinophils % (A) 1.8 %; HCT 37.1 % (37.2-46.3); HGB 12.5 g/dL (12.0-15.0); Immature Grans, Automated 0.30 %; Lymphocytes # (A) 1.90 X 10*3/uL (0.90-5.00); Lymphocytes % (A) 25.0 %; MCH 30.4 pg (27.0-32.0); MCHC 33.7 g/dL (32.0-37.0); MCV 90.3 FL (80.0-97.0); Monocytes # (A) 0.42 X 10*3/uL (0.20-1.00); Monocytes % (A) 5.5 %; NRBC Per 100 WBC 0 X 10*3/uL (0.00-0.01); Neutrophils # (A) 5.07 X 10*3/uL (1.80-7.70); Neutrophils % (A) 66.7 %; Platelet Count 127 X 10*3/uL (140-440); RBC 4.11 X 10*6/uL (4.10-5.20); RDW 13.4 % (11.5-14.5); WBC 7.60 X 10*3/uL (4.50-10.00)
[2025-01-24 19:52] LABS: Hepatitis B Surface AB- Quant 3.5 mIU/mL
[2025-01-24 19:54] LABS: Hepatitis B Surface Antigen Nonreactive (Nonreactive); Hepatitis C IgG Antibody Nonreactive (Nonreactive)
[2025-01-25 02:12] LABS: ALT 22 U/L (8-44); AST 33 U/L (13-35)
== END | disposition home or self-care (01) ==
LOC: LABWHC1 15:38
PROVIDERS: ATTEND Dermatology MOHS-Micrographic Surgery
DX: L40.4 Guttate psoriasis (principal); M25.50 Pain in unspecified joint; Z79.899 Other long term (current) drug therapy
CPT/HCPCS: 36415; 82565; 84450; 84460; 85025; 86480; 86704; 86706; 86803; 87340